=== PATIENT | female | born 1945 | race Caucasian/White ===

== ENCOUNTER 2024-08-06 22:46 | Emergency (ER) | payer OTHER ==
[~2024-08-06] VITALS: Ht 165.1 cm; Wt 70.4 kg
[2024-08-06 22:46] VITALS: BP 124/63; PULSE 37; RESP 17; TEMP 97.5; O2SAT 98
[2024-08-08] MEDS ORDERED: ATOR40TA52 PO (12:33)
[2024-08-08] MEDS ORDERED: SPIR25TA8 PO (12:33)
[2024-08-08] MEDS ORDERED: FURO40TA4 PO (12:33)
[2024-08-08] MEDS ORDERED: MET25T PO (12:33)
[2024-08-08] MEDS ORDERED: APIX5TAB PO (12:33)
== END 2024-08-07 00:04 | disposition left against medical advice (07) ==
LOC: ER 22:46
DX: R53.1 Weakness (principal); Z53.21 Procedure and treatment not carried out due to patient leaving prior to being seen by health care provider

== ENCOUNTER 2024-08-08 10:05 | Inpatient (IN) | payer OTHER ==
[2024-08-08] VITALS (32 sets, daily range): BP systolic 99–150; BP diastolic 45–84; PULSE 34–77; RESP 11–19; TEMP 97.6–98.1; O2SAT 93–100
[~2024-08-08] VITALS: Ht 165.1 cm; Wt 66.9 kg
[2024-08-08] MEDS: GLUCAGON EMERG KIT 1mg/1ml ONE (10:26)
[2024-08-08] MEDS: SODIUM CHLORIDE LOCK 10 ML ONE (10:26)
[2024-08-08] MEDS: DOPamine 1600MCG/ML D5W 0 ML IV ONE (10:29)
[2024-08-08] MEDS: ISOPROTERENOL HCL INJECTION 1 MG in D5W 5% 250 ML IV STA (10:30)
--- NOTE | 2024-08-08 10:30 | ED.PDOC ---
HPI Comments HPI: Poor Historian. 79F presents to the ER w/ son and w/ the c/c of gen perry. Pt reports on having a syncope episode Wednesday of 08/05/24 and son notes that he caught the pt and brought the pt on the ground but the glasses taht the pt was wearing gave the pt a hematoma on the right eye. The pr states on having SOB and wanted to get checked out, but when the pt arrived to triage she was bradycardic of 38. Case was discussed immediately upon the patient's arrival with the gill box operator on-call Dr. Barrios. He reviewed the EKG. He recommends an Isuprel drip to target of heart rate greater than 60. He said that he plans to place the pacemaker tomorrow. Blood pressure has been stable so far. 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 EARS: Denies acute: tinnitus, hearing loss, ear discharge, ear pain, THROAT: Denies acute: sore throat, swelling, difficulty swallowing , pain with swallowing, change in voice. NECK: Denies acute: neck pain, neck swelling, stiff neck. HEART: Denies acute : chest pain, palpitations, LUNGS: Denies acute: SOB, wheezing, cough, hemoptysis ABDOMEN: Denies acute: abdominal pain, Nausea, Vomiting, diarrhea, melena , hematemesis, hematochezia SKIN: Denies acute: rash, redness, lesions, itchiness. EXTREMITIES: Denies acute: calf pain, numbness, tingling, weakness, denies pain in extremity. Denies acute: Low back pain. Neuro: Denies acute: focal neurological deficit, motor or sensory focal neurological deficit, tremors, seizure like activity, confusion, change in mental status, loss of bowel or bladder function, cauda equina like symptoms. : Denies acute: dysuria, hematuria, flank pain, increase in urinary frequency. PSYCH: Denies acute: hallucination, suicidal ideation, homicidal ideation. FEMALE: Denies acute: abnormal vaginal bleeding, foul odor, unusual discharge. PHYSICAL EXAM: General: ---mild-----acute distress, awake and alert. Head: normocephalic, atraumatic. Neck: supple, trachea is midline, no swelling. Throat: Normal phonation. Eyes:, no erythema, no purulent discharge, no proptosis, no icterus. Heart: Bradycardia complete heart block. no significant murmur appreciated. Lungs: no apparent respiratory distress, Able to speak in full sentences. No wheezing, no rhonchi, no crackles. No stridors Clear to auscultation bilaterally. Abdomen: non tender to palpation, non distended, soft, no guarding, no rebound, + bowel sounds. Neuro: Awake, Alert, oriented to name, self, situation, follows commands GCS=15. Speech is normal. Skin: no petechia, no purpura, no cyanosis, non-pale, not jaundice. Lower extremities: --2/4 bilateral - Pitting edema no deformity, no focal swelling, no calf TTP. Makes eye contact. moves all four extremities. Face: no apparent facial droop. ED COURSE: DISCLAIMER: This medical document was created using an electronic medical record system with voice recognition software and computerized dictation system. Although this document has been carefully reviewed, there might still be some phonetic and typographical errors. Occasional wrong-word or "sound-alike" substitutions may have occurred due to the inherent limitations of voice recognition software. These areas are purely typographical due to imperfections of the software programs and do not reflect any compromise in the patient's medical care. Please read the chart carefully and recognize, using context, where these substitutions have occurred. Chief Complaint: General Weakness Time Seen by MD: 10:20 Allergies: Coded Allergies: NO KNOWN ALLERGIES (Unverified , 08/06/24) Home Meds Reported Medications Atorvastatin Calcium (ATORVASTATIN CALCIUM) 40 Mg Tab, 1 TAB PO DAILY 08/08/24 Furosemide (Furosemide) 40 Mg Tab, 1 TAB PO DAILY 08/08/24 Spironolactone (Spironolactone) 25 Mg Tab, 1 TAB PO DAILY 08/08/24 Apixaban Base (ELIQUIS) 5 Mg Tab, 1 TAB PO BID 08/08/24 Metoprolol Tartrate (Lopressor) 25 Mg Tb, 1 TAB PO BID 08/08/24 Information Source: Patient Mode of Arrival: Ambulatory Severity: Moderate Past Medical History PAST MEDICAL HISTORY: AFIB, CHF, High Lipids, HTN Past Medical History (Other): 80-90% blockage of an artery Surgical History: Denies all surgeries AIRCRAFT CAPTAIN History: No Pertinent AIRCRAFT CAPTAIN History Family History Family History: Reviewed,noncontributory to illness, Unknown Social History Smoker: Non-Smoker Alcohol: Denies ETOH Use Drugs: Denies Drug Use Lives In: Home Was a procedure done? Was a procedure done?: No X-Ray, Labs, Meds, VS Vital Signs Date Time Temp Pulse Resp B/P (MAP) Pulse Ox O2 Delivery O2 Flow Rate FiO2 08/08/24 11:55 34 16 96 Room Air* 0 21 08/08/24 11:45 66 18 121/54 (76) 97 08/08/24 11:30 76 16 137/45 (75) 97 08/08/24 11:15 60 17 129/50 (76) 98 08/08/24 11:00 34 12 120/44 (69) 97 08/08/24 11:00 120/44 08/08/24 10:45 98.3 35 15 96 98.3 08/08/24 10:30 115/56 08/08/24 10:25 98.5 38 16 125/65 (85) 98 98.5 08/08/24 10:20 38 14 115/56 (75) 96 08/08/24 10:10 37 Lab Test 08/08/24 11:39 08/08/24 11:30 08/08/24 10:15 Range/Units POC Glucose 120 H 70-106 mg/dl Troponin I High Sensitivity 43 *H 48 *H </=34 ng/L White Blood Count 6.3 4.4-10.8 10^3/uL Red Blood Count 4.05 4.0-5.20 10^6/uL Hemoglobin 13.0 12.2-16.2 g/dL Hematocrit 38.3 36.0-46.0 % Mean Corpuscular Volume 94.5 80.0-100.0 fL Mean Corpuscular Hemoglobin 32.2 H 28.0-32.0 pg Mean Corpuscular Hemoglobin Concent 34.0 32.0-36.0 g/dL Red Cell Distribution Width 14.3 11.8-14.3 % Platelet Count 238 140-450 10^3/uL Mean Platelet Volume 8.4 6.9-10.8 fL Neutrophils (%) (Auto) 70.8 37.0-80.0 % Lymphocytes (%) (Auto) 18.7 10.0-50.0 % Monocytes (%) (Auto) 8.0 0.0-12.0 % Eosinophils (%) (Auto) 1.4 0.0-7.0 % Basophils (%) (Auto) 1.1 0.0-2.0 % Neutrophils # (Auto) 4.5 1.6-8.6 10 ^3/uL Lymphocytes # (Auto) 1.2 0.4-5.4 10 ^3/uL Monocytes # (Auto) 0.5 0-1.3 10 ^3/uL Eosinophils # (Auto) 0.1 0-0.8 10 ^3/uL Basophils # (Auto) 0.1 0-0.2 10 ^3/uL Nucleated Red Blood Cells 0.1 % Prothrombin Time Pending Prothrombin Time INR Pending Activated Partial Thromboplast Time Pending Sodium Level 142 136-145 mmol/L Potassium Level 3.7 3.5-5.1 mmol/L Chloride Level 107 98-107 mmol/L Carbon Dioxide Level 24 20-31 mmol/L Anion Gap 11 5-15 Blood Urea Nitrogen 24 H 9-23 mg/dL Creatinine 1.34 H 0.550-1.02 mg/dL Glomerular Filtration Rate Calc 40 >90 mL/min BUN/Creatinine Ratio 17.9 10.0-20.0 Serum Glucose 92 74-106 mg/dL Hemoglobin A1c 5.4 <5.7 % A1C Lactic Acid Level 1.5 0.4-2.0 mmol/L Calcium Level 10.2 8.7-10.4 mg/dL Phosphorus Level 3.1 2.4-5.1 mg/dL Magnesium Level 2.1 1.6-2.6 mg/dL B-Type Natriuretic Peptide Pending Triglycerides Level 101 < 150 mg/dL Cholesterol Level 121 < 200 mg/dL LDL Cholesterol 63 < 100 mg/dL HDL Cholesterol 41 40-59 mg/dL Thyroid Stimulating Hormone (TSH) 2.85 0.55-4.78 uIU/mL Current Medications Medications (Trade) Dose Ordered Sig/Christi Route Start Time Stop Time Status Last Admin Atropine Sulfate (Atropine Sulfate) 1 mg ONCE ONCE IV 08/08/24 10:30 08/08/24 10:31 DC 08/08/24 10:38 Glucagon (Glucagen) 1 mg ONCE ONCE IV 08/08/24 10:23 08/08/24 10:26 DC 08/08/24 10:37 Sodium Chloride (Saline Lock Ns) 10 ml ONCE ONCE IV 08/08/24 10:30 08/08/24 10:31 DC 08/08/24 10:38 Isoproterenol HCl 1 mg/Dextrose 255 ml @ 30.6 mls/hr Q8H20M STAT IV 08/08/24 10:33 08/08/24 18:52 08/08/24 10:30 Time of 1ST Reevaluation: 10:50 Reevaluation 1ST: Unchanged Time of 2ND Reevaluation: 12:50 Reevaluation 2ND: Improved Patient Education/Counseling: Diagnosis, Treatment, Prognosis Family Education/Counseling: No Family Present Departure 1 Departure Time of Disposition: 10:29 Impression: Primary Impression: Complete heart block Additional Impressions: Elevated troponin Atrial fibrillation Disposition: ADMITTED INPATIENT Admit to: ICU Condition: Critical Discharged With: Self Critical Care Note Critical Care Time?: No I personally scribed for KARON DOSHI DO ([email or web address]) on 08/08/24 at 10:50. Electronically submitted by Javon Casillas ([email or web address]). KARON DOSHI DO Aug 08, 2024 10:30
[2024-08-08 10:34] LABS: Basophils # (auto) 0.1 10 ^3/uL (0-0.2); Basophils % (auto) 1.1 % (0.0-2.0); Eosinophils # (auto) 0.1 10 ^3/uL (0-0.8); Eosinophils % (auto) 1.4 % (0.0-7.0); Hematocrit 38.3 % (36.0-46.0); Lymphocytes # (auto) 1.2 10 ^3/uL (0.4-5.4); Lymphocytes % (auto) 18.7 % (10.0-50.0); Mean Corpuscular Hemoglobin 32.2 pg (28.0-32.0); Mean Corpuscular Volume 94.5 fL (80.0-100.0); Monocytes # (auto) 0.5 10 ^3/uL (0-1.3); Neutrophils # (auto) 4.5 10 ^3/uL (1.6-8.6); Neutrophils % (auto) 70.8 % (37.0-80.0); Nucleated Red Blood Cells % 0.1 %; Platelet Count (auto) 238 10^3/uL (140-450); Red Blood Cells 4.05 10^6/uL (4.0-5.20); Red Cell Distribution Width 14.3 % (11.8-14.3); White Blood Cell 6.3 10^3/uL (4.4-10.8)
[2024-08-08] MEDS: GLUCAGON EMERG KIT 1mg/1ml IV ONE ×3 (10:37→12:00)
[2024-08-08] MEDS: ATROPINE SULF 1 MG/10ml SYR IV ONE (10:38)
[2024-08-08] MEDS: SODIUM CHLOR 0.9% PF (SALINE LOCK) 10ML VIAL/SYR IV ONE (10:38)
[2024-08-08] MEDS: ONDANSETRON HCL 4 MG/2 ML VIAL ONE (10:38)
--- NOTE | 2024-08-08 10:51 | DVH ---
CHEST RADIOGRAPH Indication: weakness Technique: Single frontal view of the chest was obtained COMPARISON: None FINDINGS: Lines and Tubes: None Lungs: Clear Pleura: No effusion. No pneumothorax. Cardiomediastinal contours: Cardiomegaly Bones: Unremarkable IMPRESSION: Cardiomegaly
[2024-08-08 11:08] LABS: Anion Gap 11 (5-15); Carbon Dioxide 24 mmol/L (20-31)
[2024-08-08 11:09] LABS: Calcium 10.2 mg/dL (8.7-10.4); Chloride 107 mmol/L (98-107); Potassium 3.7 mmol/L (3.5-5.1); Sodium 142 mmol/L (136-145)
[2024-08-08 11:13] LABS: BUN/Creatinine Ratio 17.9 (10.0-20.0); Glucose 92 mg/dL (74-106)
[2024-08-08 11:14] LABS: Blood Urea Nitrogen 24 mg/dL (9-23)
[2024-08-08 11:16] LABS: Phosphorus 3.1 mg/dL (2.4-5.1)
[2024-08-08 11:26] LABS: Magnesium 2.1 mg/dL (1.6-2.6)
--- NOTE | 2024-08-08 11:42 | DVHINCON2 ---
Date Seen: Aug 08, 2024 Referring Physician MD Yakov Reason for Consultation Complete heart block History of Present Illness This is pleasant 79-year-old female who presented to the emergency room with a chief complaint of generalized weakness since Wednesday. The patient complains of progressive generalized weakness associated with dizziness, visual disturbances, increased fatigue with exertion, and a reported syncopal event this past Wednesday. She presents with right orbital hematoma. Upon arrival to the emergency room she underwent a 12 lead electrocardiogram revealing a complete heart block with a heart rate at 37 bpm. States she takes Lopressor 25 mg BID with latest intake on Wednesday morning as she noticed bradycardic events. She also takes Eliquis with latest administration this morning. Significant medical history includes severe coronary artery disease with recent cardiac catheterization and without catheter based intervention given high-risk PCI versus possible high-risk cardiothoracic surgery for which the patient chose to continue with medical conservative management at [facility] in [place], [place] with Dr. Castañeda on 12/15/2023 (off antiplatelet therapy), moderate to severe mitral valve regurgitation status post CLAUDINE on 11/2023, unspecified atrial fibrillation status post DC cardioversion (11/2023) currently on Eliquis, congestive heart failure with preserved EF, hypertension, and dyslipidemia. Cardiac catheterization report from [facility] in [place], [place] with Dr. Castañeda (12/16/2023): Coronary Angiography findings: Left main large caliber vessel. The distal left main has 50% disease that is in continuity with severe ostial disease of the left circumflex in the LAD, [id number] left main distal disease. LAD is a large caliber vessel. There is tortuosity in the proximal segment with a hairpin turn, the ostium has a severe 95% calcific stenosis. Conclusions: Severe distal left main, ostial LAD and ostial left circumflex disease, extremely calcified, very complex PCI high-risk versus possible high-risk CABG versus medical management. Normal left ventricular function, EF 60%. [id number] mitral valve regurgitation on echo. Atrial fibrillation cardioverted. We will discuss with the patient, family and possible cardiothoracic surgery about the high Cardiothoracic risk of combined mitral valve repair and bypass surgery. Possible high-risk PCI and mitral valve clip versus continued medical conservative management. Past Medical History Past medical history reviewed. No other significant than mentioned above. Past Surgical History DC cardioversion, 11/2023 Transesophageal echocardiogram, 11/2023 Cardiac catheterization without catheter based intervention, 11/2023 Family History Family history reviewed. Social History Denies the use of illicit drugs, alcohol, or tobacco use. Allergies: Coded Allergies: NO KNOWN ALLERGIES (Unverified , 08/06/24) Home Meds Home medications reviewed. Current Medications Current Medications Medications (Trade) Dose Ordered Sig/Christi Route PRN Reason Start Time Stop Time Status Last Admin Isoproterenol HCl 1 mg/Dextrose 255 ml @ 30.6 mls/hr Q8H20M STAT IV 08/08/24 10:33 08/08/24 18:52 08/08/24 11:00 Review of Systems Constitutional: Generalized weakness Ears, Nose, & Throat: No symptom reported Eyes: No symptom reported Neurological: Blurry vision, dizziness, syncope Pulmonary/Respiratory: No symptom reported Cardiovascular: No symptom reported Gastrointestinal: No symptom reported Genitourinary: No symptom reported Musculoskeletal: No symptom reported Skin: No symptom reported Psychiatric: No symptom reported Endocrine: No symptom reported Hemotologic/Lymphatic: No symptom reported Vital Signs Vital Signs Date Time Temp Pulse Resp B/P (MAP) Pulse Ox O2 Delivery O2 Flow Rate FiO2 08/08/24 11:00 129/50 08/08/24 10:25 98.5 38 16 98 98.5 Physical Exam General Appearance: Cooperative. Well developed. Well nourished. In no acute distress Head Exam: Normal inspection Neck Exam: Normal inspection. Non-tender. Normal alignment Pulmonary/Respiratory: Chest non-tender. Clear bilateral breath sounds Cardiovascular/Chest: Regular rate and rhythm. S1, S2. Complete heart block. Holosystolic murmur V/. No JVD. Peripheral Pulses: 2+ Radial (R). 2+ Radial (L). 2+ Pedal (R). 2+ Pedal (L) Abdominal Exam: Normal bowel sounds. Soft. Nontender. No hepatospenomegaly. No masses Ankle Exam: Negative ankle edema Lower extremities: Negative lower extremity edema Neuro/Mental Status: A&O x4. Coherent Thoughts/Psych: Normal thought pattern. Appropriate mood and affect. Good judgement and insight Appearance: In no acute distress Skin Exam: Right orbital hematoma Labs/Diagnostic Data Labs Test 08/08/24 11:30 08/08/24 10:15 Range/Units White Blood Count 6.3 4.4-10.8 10^3/uL Red Blood Count 4.05 4.0-5.20 10^6/uL Hemoglobin 13.0 12.2-16.2 g/dL Hematocrit 38.3 36.0-46.0 % Mean Corpuscular Volume 94.5 80.0-100.0 fL Mean Corpuscular Hemoglobin 32.2 H 28.0-32.0 pg Mean Corpuscular Hemoglobin Concent 34.0 32.0-36.0 g/dL Red Cell Distribution Width 14.3 11.8-14.3 % Platelet Count 238 140-450 10^3/uL Mean Platelet Volume 8.4 6.9-10.8 fL Neutrophils (%) (Auto) 70.8 37.0-80.0 % Lymphocytes (%) (Auto) 18.7 10.0-50.0 % Monocytes (%) (Auto) 8.0 0.0-12.0 % Eosinophils (%) (Auto) 1.4 0.0-7.0 % Basophils (%) (Auto) 1.1 0.0-2.0 % Neutrophils # (Auto) 4.5 1.6-8.6 10 ^3/uL Lymphocytes # (Auto) 1.2 0.4-5.4 10 ^3/uL Monocytes # (Auto) 0.5 0-1.3 10 ^3/uL Eosinophils # (Auto) 0.1 0-0.8 10 ^3/uL Basophils # (Auto) 0.1 0-0.2 10 ^3/uL Nucleated Red Blood Cells 0.1 % Sodium Level 142 136-145 mmol/L Potassium Level 3.7 3.5-5.1 mmol/L Chloride Level 107 98-107 mmol/L Carbon Dioxide Level 24 20-31 mmol/L Anion Gap 11 5-15 Blood Urea Nitrogen 24 H 9-23 mg/dL Creatinine 1.34 H 0.550-1.02 mg/dL Glomerular Filtration Rate Calc 40 >90 mL/min BUN/Creatinine Ratio 17.9 10.0-20.0 Serum Glucose 92 74-106 mg/dL Lactic Acid Level 1.5 0.4-2.0 mmol/L Calcium Level 10.2 8.7-10.4 mg/dL Phosphorus Level 3.1 2.4-5.1 mg/dL Magnesium Level 2.1 1.6-2.6 mg/dL Thyroid Stimulating Hormone (TSH) 2.85 0.55-4.78 uIU/mL Assessment Complete heart block Syncope and collapse secondary to above Unspecified atrial fibrillation status post DC cardioversion (11/2023), on Eliquis/BB Severe coronary artery disease including severe distal left main, ostial LAD, and ostial LCx Mitral valve regurgitation, [id number] Chronic compensated HFpEF Hypertension Dyslipidemia Plan/Recommendation (Dr. Barrios) The patient with a complete heart block will continue Isoproterenol drip to attain a HR > 50 bpm. Continue glucagon IV given recent beta-comfort use. Obtain a STAT transthoracic echocardiogram to further evaluate cardiac function. Administer atropine IV vs initiation of transcutaneous pacing for a HR <30 bpm. Notify Cardiology of any acute changes on HR or decompensation of clinical status. Stable at this time. We will further discuss with Dr. Barrios as the patient qualifies for a permanent pacemaker, nevertheless she last took Eliquis this morning at 1000 which may delay the procedure. Further orders per clinical course. Thank you for allowing us to participate in this patient's care. Please call if you have any questions or concerns. Critical care time: 70 min. This medical document was created using an electronic medical record system with voice recognition software and computerized dictation system. Although this document has been carefully reviewed, there might still be some phonetic and typographical errors. Occasional wrong-word or ``sound-alike substitutions may have occurred due to the inherent limitations of voice recognition software. These areas are purely typographical due to imperfections of the software programs and do not reflect any compromise in the patient's medical care. Please read the chart carefully and recognize, using context, where these substitutions have occurred. Plan discussed with: Patient, Son, Other NYHA Physical activity limitations: NA Date of Service: Aug 08, 2024 Billing Provider: JOSE C JEWELL Cardiology Common Codes: [id number] CARE 30-74 MIN JOSE C JEWELL Aug 08, 2024 11:42
[2024-08-08] MEDS: DOPamine 1600MCG/ML D5W 250 ML IV SCH (12:15)
[2024-08-08] MEDS ORDERED: HYDROcodone-ACET 5/325MG TAB PO PRN (12:30)
[2024-08-08] MEDS ORDERED: MORPHINE SULFATE INJ 2 MG/ml SYRG IV PRN (12:30)
[2024-08-08] MEDS ORDERED: NITROGLYCERIN 0.4 MG SL TAB SL PRN (12:30)
[2024-08-08] MEDS ORDERED: FURO40TA4 PO (12:33)
[2024-08-08] MEDS ORDERED: MET25T PO (12:33)
[2024-08-08] MEDS ORDERED: APIX5TAB PO (12:33)
[2024-08-08] MEDS ORDERED: ATOR40TA52 PO (12:33)
[2024-08-08] MEDS ORDERED: SPIR25TA8 PO (12:33)
[2024-08-08 12:34] LABS: LDL Cholesterol 63 mg/dL (< 100); Triglycerides 101 mg/dL (< 150)
[2024-08-08 12:35] LABS: Cholesterol 121 mg/dL (< 200); HDL Cholesterol 41 mg/dL (40-59)
--- NOTE | 2024-08-08 12:55 | DVHHP2 ---
History of Present Illness Reason for Visit: Low heart rate History of Present Illness Roz Jones is an 79-year-old female with past medical history of atrial fibrillation, CHF, hypertension, and hyperlipidemia, who came to the hospital for low heart rate. [place] and is here visiting her son. Patient states she has been feeling weak, tired, short of breath and having difficulty ambulating short distances the last few days. She states she noticed her heart rate was low on Wednesday08/04/2024. She last took her Beta comfort Wednesday evening. Wednesday she had a syncopal episode, where her son caught her and assisted her to the ground. She had a momentary loss of consciousness. She also hit her glasses to her face causing a bruise. Wednesday she came to the ER due to her low heart rate and fatigue. She ended up leaving AMA because she was reaching out to her primary care provider to find out if she be seen closer to home. Her primary care provider called back today and told her she could be seen at either place, but that she needed to get seen as soon as possible. Patient last took her Eliquis this morning. I spoke with cardiology and they are working on getting her to labeler today or tomorrow. Cardiovascular: AFIB, CHF, HTN, hyperipidemia Past Surgical History: Cholecystectomy Smoke: No ALCOHOL: rare Drugs: None Lives: with Family Domestic Violence: Neg Review of Systems Constitutional: Yes: Weakness, Malaise; No: Fever, Chills, Sweats, Other Eyes: No: Pain, Vision change, Conjunctivae inflammation, Eyelid inflammation, Other, Redness ENT: No: Ear pain, Ear discharge, Nose pain, Nose discharge, Nose congestion, Mouth pain, Mouth swelling, Throat pain, Throat swelling, Other Respiratory: Shortness of breath, SOB with excertion; No: Cough, Dry, Wheezing, Hemoptysis, Pleuritic Pain, Sputum, Wheezing, Other Cardiovascular: Edema, Lt Headedness; No: Chest Pain, Palpitations, Orthopnea, Paroxysmal Noc. Dyspnea, Other Gastrointestinal: No: Nausea, Vomiting, Abdominal Pain, Diarrhea, Constipation, Melena, Hematochezia, Other Genitourinary: No Dysuria, No Frequency, No Incontinence, No Hematuria, No Retention, No Other Musculoskeletal: No: other, neck pain, shoulder pain, arm pain, back pain, hand pain, leg pain, foot pain Neurological: No: Weakness, Numbness, Incoordination, Change in speech, Confusion, Seizures, Other Allergies: Coded Allergies: NO KNOWN ALLERGIES (Unverified , 08/06/24) Medications Current Medications Medications Dose Ordered Sig/Christi Route Start Time Stop Time Status Last Admin Dose Admin Isoproterenol HCl 1 mg/Dextrose 255 ml @ 30.6 mls/hr Q8H20M STAT IV 08/08/24 10:33 08/08/24 18:52 08/08/24 10:30 30.6 MLS/HR Dopamine HCl/ Dextrose 250 ml @ 11.813 mls/ hr [id number] IV 08/08/24 12:15 Exam Vital Signs Vital Signs Date Time Temp Pulse Resp B/P (MAP) Pulse Ox O2 Delivery O2 Flow Rate FiO2 08/08/24 11:55 34 16 96 Room Air* 0 21 08/08/24 11:45 121/54 (76) 08/08/24 10:45 98.3 98.3 General Appearance: Alert, Oriented X3, Cooperative, moderate distress HEENT: Atraumatic, PERRLA Respiratory: Clear to auscultation, Normal air movement Cardiovascular: Other (complete heart block) Abdominal: Normal bowel sounds, Soft, No tenderness, No hepatospenomegaly, No masses Extremities: No clubbing, No cyanosis, Normal pulses, No tenderness/swelling, Other (bilateral lower extremity edema) Skin: No rashes, No breakdown, No significant lesion Neuro: Normal speech, Strength at 5/5 X4 ext Psych/Mental Status: Mental status NL, Mood NL Labs/Xrays Labs Test 08/08/24 11:39 08/08/24 11:30 08/08/24 10:15 Range/Units POC Glucose 120 H 70-106 mg/dl Troponin I High Sensitivity 43 *H </=34 ng/L White Blood Count 6.3 4.4-10.8 10^3/uL Red Blood Count 4.05 4.0-5.20 10^6/uL Hemoglobin 13.0 12.2-16.2 g/dL Hematocrit 38.3 36.0-46.0 % Mean Corpuscular Volume 94.5 80.0-100.0 fL Mean Corpuscular Hemoglobin 32.2 H 28.0-32.0 pg Mean Corpuscular Hemoglobin Concent 34.0 32.0-36.0 g/dL Red Cell Distribution Width 14.3 11.8-14.3 % Platelet Count 238 140-450 10^3/uL Mean Platelet Volume 8.4 6.9-10.8 fL Neutrophils (%) (Auto) 70.8 37.0-80.0 % Lymphocytes (%) (Auto) 18.7 10.0-50.0 % Monocytes (%) (Auto) 8.0 0.0-12.0 % Eosinophils (%) (Auto) 1.4 0.0-7.0 % Basophils (%) (Auto) 1.1 0.0-2.0 % Neutrophils # (Auto) 4.5 1.6-8.6 10 ^3/uL Lymphocytes # (Auto) 1.2 0.4-5.4 10 ^3/uL Monocytes # (Auto) 0.5 0-1.3 10 ^3/uL Eosinophils # (Auto) 0.1 0-0.8 10 ^3/uL Basophils # (Auto) 0.1 0-0.2 10 ^3/uL Nucleated Red Blood Cells 0.1 % Sodium Level 142 136-145 mmol/L Potassium Level 3.7 3.5-5.1 mmol/L Chloride Level 107 98-107 mmol/L Carbon Dioxide Level 24 20-31 mmol/L Anion Gap 11 5-15 Blood Urea Nitrogen 24 H 9-23 mg/dL Creatinine 1.34 H 0.550-1.02 mg/dL Glomerular Filtration Rate Calc 40 >90 mL/min BUN/Creatinine Ratio 17.9 10.0-20.0 Serum Glucose 92 74-106 mg/dL Lactic Acid Level 1.5 0.4-2.0 mmol/L Calcium Level 10.2 8.7-10.4 mg/dL Phosphorus Level 3.1 2.4-5.1 mg/dL Magnesium Level 2.1 1.6-2.6 mg/dL Thyroid Stimulating Hormone (TSH) 2.85 0.55-4.78 uIU/mL CHEST RADIOGRAPH FINDINGS: Lines and Tubes: None Lungs: Clear Pleura: No effusion. No pneumothorax. Cardiomediastinal contours: Cardiomegaly Bones: Unremarkable IMPRESSION: Cardiomegaly Assessment/Plan Assessment/Plan Assessment: Complete heart block, CHF, Hypertension, Hyperlipidemia, Plan: Admit to ICU, Cardiology consult, Isoproterenol drip, ECHO, NPO, Keep connected to defibrillator, Home medication reconciled, Home Metoprolol and Eliquis held Plan discussed with: Patient, Son My Orders Orders - ANANT SETH Procedure Category Date Status Time Admit ADMIT 08/08/24 Transmitted 12:26 Code Status CODE 08/08/24 Transmitted 12:26 0.9% Ns 1000 Ml PHA 08/08/24 Transmitted 12:30 Hydrocodone-Acet PHA 08/08/24 Transmitted 5/325mg Tab (Julian 12:30 Ondansetron Hcl PHA 08/08/24 Transmitted (Zofran) 12:30 Docusate Sodium PHA 08/08/24 Transmitted Capsule (Colace 12:30 Fall Risk Precautions [facility] 08/08/[address] 12:26 Complete Blood Count LAB 08/09/24 Verified 04:00 Comprehensive LAB 08/09/24 Verified Metabolic Panel 04:00 Npo (Nothing By DIET 08/08/24 Transmitted Mouth) Diet Lunch Condition: Critical [facility] 08/08/24 Transmitted 12:26 Acetaminophen Tablet PHA 08/08/24 Transmitted (Tylenol Tablet) 12:30 Nitroglycerin PHA 08/08/24 Transmitted Sublingual (Ntrostat 12:30 Morphine Sulfate PHA 08/08/24 Transmitted Injection 12:30 Stat Ekg For Chest [facility] 08/08/24 Transmitted Pain 12:26 Notify Md Of Changes 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 08/08/24 Transmitted Every Shift 12:26 Oxygen By Nasal RT 08/08/24 Transmitted Cannula 12:26 Date of Service: Aug 08, 2024 Billing Provider: ANANT SETH Common Visit Codes: [id number] INP/OBS CARE (HIGH) ANANT SETH Aug 08, 2024 12:55
[2024-08-08] MEDS: SODIUM CHLORIDE 0.9% 1,000 ML IV SCH (13:00)
[2024-08-08 13:03] LABS: INR 1.14 (0.9-1.15); Partial Thromboplastin Time 27.1 SEC (24.5-34.5); Prothrombin Time 11.9 sec (9.3-11.8)
[2024-08-08] MEDS: ASPirin-EC 325mg tab PO ONE (13:11)
[2024-08-08] MEDS: MIDAZOLAM HCL 2MG/2ML 2ml VIAL (1mg/ml) ONE (14:42)
[2024-08-08] MEDS: fentaNYL CITRATE 100 MCG/2 ML VL ONE (14:42)
[2024-08-08] MEDS: LIDOCAINE 2%HCL (LOCAL ANESTH.) INJ 20ML MDV ONE (14:42)
[2024-08-08] MEDS: ONDANSETRON HCL 4 MG/2 ML VIAL IV PRN (15:58)
--- NOTE | 2024-08-08 17:18 | DVHOP2 ---
Operative Report - 2 Report Details Date: 08/08/24 Preop Diagnosis: Complete heart block Postop Diagnosis: Complete heart block Surgeon: Ren Christianson MD Anesthesiologist: Conscious sedation, local anesthetic Anesthesia: Mac, Local Consent: The patient was informed of the risks and benefits of the procedure. These include but are not limited to complications of anesthesia, postoperative infection, incomplete relief of symptoms, recurrence of symptoms, damage to blood vessels, nerves and tendons, deep venous thrombosis, pulmonary embolism and possible need for repeat surgery in the future. Complications: No complications Findings: Complete heart block Indications for Surgery: Complete heart block Name of Procedure Performed Temporary pacemaker Procedure Details Procedure Details: Prior local anesthesia 2% lidocaine to the right anterior aspect of the neck under fluoroscopic and ultrasound guidance we were able to gain access into the internal jugular vein. A six Divehi sheath was then placed followed by a temporary pacing lead. A balloon tipped pacer was placed into the RV. It was d ifficult to obtain access into the RV apex. It was placed into the mid to lower septum within the trabeculae. Adequate capture and sensitivity thresholds were obtained. The sheath was sutured with 3-0 silk. The lead was secured with 3-0 silk as well. Fluoroscopy and ultrasound guidance was used to place the sheath and positioned the pacemaker in the appropriate position. Patient tolerated the procedure well there were no complications. Patient will have permanent pacemaker placement in two day subsequent to discontinuing Eliquis. Condition Good Disposition Still a Patient Date of Service: Aug 08, 2024 Billing Provider: REN CHRISTIANSON Sr., MD Cardiology Common Codes: [id number] INP/OBS CARE (High) Card. Pacer Implants/Gen [id number] TTVPM/PACER (Temporary transvenous pacemaker placed under fluoroscopic and ultrasound guidance) REN CHRISTIANSON Sr., MD Aug 08, 2024 17:18
[2024-08-08] MEDS: ATORVASTATIN 20 MG TAB PO SCH (22:00)
--- NOTE | 2024-08-08 23:50 | DVHINCON2 ---
Date Seen: Aug 08, 2024 Referring Physician MD Yakov Reason for Consultation Complete heart block History of Present Illness This is 79-year-old female with a PMH of severe coronary artery disease with recent cardiac catheterization and without catheter based intervention given high-risk PCI versus possible high-risk cardiothoracic surgery for which the patient chose to continue with medical conservative management at [facility] in [place], [place] with Dr. Castañeda on 12/15/2023 (off antiplatelet therapy), moderate to severe mitral valve regurgitation status post CLAUDINE on 11/2023, unspecified atrial fibrillation status post DC cardioversion (11/2023) currently on Eliquis, congestive heart failure with preserved EF, hypertension, and dyslipidemia. who presented to the ED with a complaint of generalized weakness since Wednesday. The patient complains of progressive generalized weakness associated with dizziness, visual disturbances, increased fatigue with exertion, and a reported syncopal event this past Wednesday. She presents with right orbital hematoma. Upon arrival to the emergency room she underwent a 12 lead electrocardiogram revealing a complete heart block with a heart rate at 37 bpm. States she takes Lopressor 25 mg BID with latest intake on Wednesday morning as she noticed bradycardic events. She also takes Eliquis with latest administration this morning. Chest x-ray shows cardiomegaly. Troponin 48 > 43. Patient was admitted to the hospital. I am asked to consult on this patient. Cardiac catheterization report from [facility] in [place], [place] with Dr. Castañeda (12/16/2023): Coronary Angiography findings: Left main large caliber vessel. The distal left main has 50% disease that is in continuity with severe ostial disease of the left circumflex in the LAD, [id number]-[id number] left main distal disease. LAD is a large caliber vessel. There is tortuosity in the proximal segment with a hairpin turn, the ostium has a severe 95% calcific stenosis. Conclusions: Severe distal left main, ostial LAD and ostial left circumflex disease, extremely calcified, very complex PCI high-risk versus possible high-risk CABG versus medical management. Normal left ventricular function, EF 60%. Ulcrayzb-rr-eijkan mitral valve regurgitation on echo. Atrial fibrillation cardioverted. We will discuss with the patient, family and possible cardiothoracic surgery about the high Cardiothoracic risk of combined mitral valve repair and bypass surgery. Possible high-risk PCI and mitral valve clip versus continued medical conservative management. Past Medical History Past medical history reviewed. No other significant than mentioned above. Past Surgical History DC cardioversion, 11/2023 Transesophageal echocardiogram, 11/2023 Cardiac catheterization without catheter based intervention, 11/2023 Family History: FH: cancer G8 MOTHER, Onset:Unknown Hypertension 19 CHILD, Onset:40's - 50 Prostate carcinoma G8 BROTHER, Onset:Unknown Allergies: Coded Allergies: NO KNOWN ALLERGIES (Unverified , 08/06/24) Home Meds Reported Medications Atorvastatin Calcium (ATORVASTATIN CALCIUM) 40 Mg Tab, 1 TAB PO DAILY 08/08/24 Furosemide (Furosemide) 40 Mg Tab, 1 TAB PO DAILY 08/08/24 Spironolactone (Spironolactone) 25 Mg Tab, 1 TAB PO DAILY 08/08/24 Apixaban Base (ELIQUIS) 5 Mg Tab, 1 TAB PO BID 08/08/24 Metoprolol Tartrate (Lopressor) 25 Mg Tb, 1 TAB PO BID 08/08/24 Current Medications Current Medications Medications (Trade) Dose Ordered Sig/Christi Route PRN Reason Start Time Stop Time Status Last Admin Isoproterenol HCl 1 mg/Dextrose 255 ml @ 30.6 mls/hr Q8H20M STAT IV 08/08/24 10:33 08/08/24 18:52 DC 08/08/24 10:30 Dopamine HCl/ Dextrose 250 ml @ 11.813 mls/ hr [id number] IV 08/08/24 12:15 Sodium Chloride 1,000 ml @ 100 mls/hr Q10H IV 08/08/24 12:30 08/08/24 16:13 DC 08/08/24 13:00 Acetaminophen/ Hydrocodone Bitart ([place] 5/325MG Tab) 1 tab Q4HP PRN PO MODERATE PAIN (4-6 PAIN SCALE) 08/08/24 12:30 Ondansetron HCl (Zofran) 4 mg Q4HP PRN IV NAUSEA / VOMITING 08/08/24 12:30 08/08/24 15:58 Docusate Sodium (Colace Capsule) 100 mg BIDPRN PRN PO FOR CONSTIPATION 08/08/24 12:30 Acetaminophen (Tylenol Tablet) 650 mg Q6HP PRN PO PAIN SCALE 1-3 OR TEMP>100.4 08/08/24 12:30 Nitroglycerin (Ntrostat Sublingual) 0.4 mg Q5MINP PRN SL FOR CHEST PAIN 08/08/24 12:30 Morphine Sulfate 2 mg Q30M PRN IV FOR CHEST PAIN 08/08/24 12:30 Furosemide (Lasix Tablet) 40 mg DAILY PO 08/09/24 10:00 Spironolactone (Aldactone) 25 mg DAILY PO 08/09/24 10:00 Atorvastatin Calcium (Lipitor) 40 mg HS PO 08/08/24 22:00 Review of Systems Constitutional: Generalized weakness Ears, Nose, & Throat: No symptom reported Eyes: No symptom reported Neurological: Blurry vision, dizziness, syncope Pulmonary/Respiratory: No symptom reported Cardiovascular: No symptom reported Gastrointestinal: No symptom reported Genitourinary: No symptom reported Musculoskeletal: No symptom reported Skin: No symptom reported Psychiatric: No symptom reported Endocrine: No symptom reported Hemotologic/Lymphatic: No symptom reported Vital Signs Vital Signs Date Time Temp Pulse Resp B/P (MAP) Pulse Ox O2 Delivery O2 Flow Rate FiO2 08/08/24 22:01 98.1 70 18 131/74 (93) 99 98.1 08/08/24 22:01 Nasal Cannula* 2 28 Physical Exam GENERAL: Alert and oriented x 3. No acute distress. EYES: PERRL, EOMI. Anicteric. HENT: Moist mucous membranes. LUNGS: Clear to auscultation bilaterally. CARDIOVASCULAR: Regular rate and rhythm. Complete heart block. Holosystolic murmur V/. ABDOMEN: Soft, non-tender and non-distended. EXTREMITIES: No edema. NEUROLOGIC: No focal neurological deficits. SKIN: Warm, dry. Labs/Diagnostic Data Labs Test 08/08/24 11:39 08/08/24 11:30 08/08/24 10:15 Range/Units POC Glucose 120 H 70-106 mg/dl Troponin I High Sensitivity 43 *H </=34 ng/L White Blood Count 6.3 4.4-10.8 10^3/uL Red Blood Count 4.05 4.0-5.20 10^6/uL Hemoglobin 13.0 12.2-16.2 g/dL Hematocrit 38.3 36.0-46.0 % Mean Corpuscular Volume 94.5 80.0-100.0 fL Mean Corpuscular Hemoglobin 32.2 H 28.0-32.0 pg Mean Corpuscular Hemoglobin Concent 34.0 32.0-36.0 g/dL Red Cell Distribution Width 14.3 11.8-14.3 % Platelet Count 238 140-450 10^3/uL Mean Platelet Volume 8.4 6.9-10.8 fL Neutrophils (%) (Auto) 70.8 37.0-80.0 % Lymphocytes (%) (Auto) 18.7 10.0-50.0 % Monocytes (%) (Auto) 8.0 0.0-12.0 % Eosinophils (%) (Auto) 1.4 0.0-7.0 % Basophils (%) (Auto) 1.1 0.0-2.0 % Neutrophils # (Auto) 4.5 1.6-8.6 10 ^3/uL Lymphocytes # (Auto) 1.2 0.4-5.4 10 ^3/uL Monocytes # (Auto) 0.5 0-1.3 10 ^3/uL Eosinophils # (Auto) 0.1 0-0.8 10 ^3/uL Basophils # (Auto) 0.1 0-0.2 10 ^3/uL Nucleated Red Blood Cells 0.1 % Prothrombin Time 11.9 H 9.3-11.8 sec Prothrombin Time INR 1.14 0.9-1.15 Activated Partial Thromboplast Time 27.1 24.5-34.5 SEC Sodium Level 142 136-145 mmol/L Potassium Level 3.7 3.5-5.1 mmol/L Chloride Level 107 98-107 mmol/L Carbon Dioxide Level 24 20-31 mmol/L Anion Gap 11 5-15 Blood Urea Nitrogen 24 H 9-23 mg/dL Creatinine 1.34 H 0.550-1.02 mg/dL Glomerular Filtration Rate Calc 40 >90 mL/min BUN/Creatinine Ratio 17.9 10.0-20.0 Serum Glucose 92 74-106 mg/dL Hemoglobin A1c 5.4 <5.7 % A1C Lactic Acid Level 1.5 0.4-2.0 mmol/L Calcium Level 10.2 8.7-10.4 mg/dL Phosphorus Level 3.1 2.4-5.1 mg/dL Magnesium Level 2.1 1.6-2.6 mg/dL B-Type Natriuretic Peptide 729.14 0-100 pg/mL Triglycerides Level 101 < 150 mg/dL Cholesterol Level 121 < 200 mg/dL LDL Cholesterol 63 < 100 mg/dL HDL Cholesterol 41 40-59 mg/dL Thyroid Stimulating Hormone (TSH) 2.85 0.55-4.78 uIU/mL Assessment Complete heart block. Syncope and collapse secondary to above. Unspecified atrial fibrillation status post DC cardioversion (11/2023), on Eliquis/BB. Severe coronary artery disease including severe distal left main, ostial LAD, and ostial LCx. Mitral valve regurgitation, [id number]. Chronic compensated HFpEF. Hypertension. Dyslipidemia. Plan/Recommendation I agree with your ongoing assessment and care of plan. Patient has been seen by Elena Cochran NP on my behalf. We have discussed the plan with the patient. The patient with a complete heart block will continue Isoproterenol drip to attain a HR > 50 bpm. Continue glucagon IV given recent beta-comfort use. Obtain a STAT transthoracic echocardiogram to further evaluate cardiac function. Administer atropine IV vs initiation of transcutaneous pacing for a HR <30 bpm. Notify Cardiology of any acute changes on HR or decompensation of clinical status. Stable at this time. We will further discuss as the patient qualifies for a permanent pacemaker, nevertheless she last took Eliquis this morning at 1000 which may delay the procedure. Further orders per clinical course. Additional plan as per the hospital course. Plan discussed with: Patient NYHA Physical activity limitations: NA Date of Service: Aug 08, 2024 Billing Provider: DAWN MOBLEY MD Cardiology Common Codes: [id number] DAWN MOBLEY MD Aug 08, 2024 23:50
[2024-08-09] VITALS (81 sets, daily range): BP systolic 79–176; BP diastolic 44–128; PULSE 51–118; RESP 12–25; TEMP 97.9–98.4; O2SAT 92–100
[2024-08-09 04:19] LABS: Basophils # (auto) 0 10 ^3/uL (0-0.2); Basophils % (auto) 0.4 % (0.0-2.0); Eosinophils # (auto) 0 10 ^3/uL (0-0.8); Eosinophils % (auto) 0.3 % (0.0-7.0); Hematocrit 36.5 % (36.0-46.0); Hemoglobin 12.7 g/dL (12.2-16.2); Lymphocytes # (auto) 1.3 10 ^3/uL (0.4-5.4); Lymphocytes % (auto) 15.9 % (10.0-50.0); Mean Corpuscular Hemoglobin 32.8 pg (28.0-32.0); Mean Corpuscular Hgb Conc. 34.7 g/dL (32.0-36.0); Mean Corpuscular Volume 94.5 fL (80.0-100.0); Monocytes # (auto) 0.8 10 ^3/uL (0-1.3); Monocytes % (auto) 9.8 % (0.0-12.0); Neutrophils # (auto) 5.8 10 ^3/uL (1.6-8.6); Neutrophils % (auto) 73.6 % (37.0-80.0); Platelet Count (auto) 211 10^3/uL (140-450); Red Blood Cells 3.86 10^6/uL (4.0-5.20); Red Cell Distribution Width 14.4 % (11.8-14.3); White Blood Cell 7.9 10^3/uL (4.4-10.8)
[2024-08-09 04:37] LABS: Alanine Aminotransferase 26 U/L (7-40); Albumin 3.9 g/dL (3.2-4.8); Alkaline Phosphatase 102 U/L (46-116); Anion Gap 10 (5-15); Aspartate Aminotransferase 31 U/L (<34); BUN/Creatinine Ratio 14.5 (10.0-20.0); Blood Urea Nitrogen 17 mg/dL (9-23); Carbon Dioxide 24 mmol/L (20-31); Glucose 89 mg/dL (74-106); Potassium 4.5 mmol/L (3.5-5.1); Sodium 142 mmol/L (136-145); Total Protein 5.7 g/dL (5.7-8.2)
[2024-08-09 04:40] LABS: Bilirubin, Total 1.4 mg/dL (0.2-1.0); Chloride 108 mmol/L (98-107)
[2024-08-09] MEDS: FUROSEMIDE 40 MG TAB PO SCH (09:19)
[2024-08-09] MEDS: SPIRONOLACTONE 25 MG TAB PO SCH (09:20)
--- NOTE | 2024-08-09 09:22 | DVHSR ---
APPROVED REPORT EXAM: Two-dimensional and M-mode echocardiogram with Doppler and color Doppler. Blood Pressure: 121/54 mmHg INDICATION Complete Heart Block RISK FACTORS Height: 5'5", Weight: 138 DIMENSIONS LVDd4.2 (3.8-5.7cm)LA (2D)4.9 (1.9-4.0cm)Aortic Root (2.0-3.7cm) LVDs2.0 (2.5-4.0cm)LA (MM) (1.9-4.0cm)Aortic Cusp Exc (1.5-2.0cm) EF (%) 83.0 (55-70%)Rt. Atrium4.3 (1.9-4.0cm)Asc. Aorta cm IVSd1.9 (0.7-1.1cm)RV (D)4.0 (1.8-2.4cm) PWd1.4 (0.7-1.1cm) Mitral Valve MitralMitral Stenosis E wave1.35m/sMV Mean GR.4mmHg A wavem/sMV Peak GR.12mmHg E/A ratio0.02D MVAcm2 DECEL TimemsPRESS 1/2 [id number] IVRTmsDop MVA1.76cm2 Aortic Valve Aortic ValveAortic Stenosis V1m/Fadi Mean GR.50mmHg V24.86m/Fadi Peak GR.100mmHg Tricuspid Valve TR Velocity3.39m/s [id number] Other Information Quality : Technically LimitedRhythm : Technically limited study due to patient position. Pt was sitting up. Conclusion 1. MODERATE DEGREE LVH AND MODERATE DEGREE LV DIASTOLIC DYSFUNCTION LV EF IS 70% AND IS NORMAL 2. MODERATELY DILATED LA 3. MODERATELY SEVERE MITRAL REGURGITATION 4. NORMAL VALVES 5. NO EFFUSION 6. SEVERE PULMONARY HYPERTENSION RVSP IS 60 MM OF HG AND IS VERY HIGH
--- NOTE | 2024-08-09 13:02 | DVHPN2 ---
Consult Progress Note Subjective Other Systems: Patient in normal sinus rhythm with underlying paced rhythm. Transvenous pacemaker in place Objective vital signs Vital Sign Date Time Temp Pulse Resp B/P (MAP) Pulse Ox O2 Delivery O2 Flow Rate FiO2 08/09/24 12:00 71 15 96/55 (69) 98 08/09/24 12:00 Nasal Cannula* 2 28 08/09/24 08:00 97.9 97.9 Total Intake and Output 08/08/24 08/08/24 08/09/24 15:00 23:00 07:00 Intake Total 216.675 ml 37.800 ml Balance 216.675 ml 37.800 ml medications Current Medications Medications Dose Ordered Sig/Christi Route Start Time Stop Time Status Last Admin Dose Admin Dopamine HCl/ Dextrose 250 ml @ 11.813 mls/ hr [id number] IV 08/08/24 12:15 Acetaminophen/ Hydrocodone Bitart 1 tab Q4HP PRN PO 08/08/24 12:30 Ondansetron HCl 4 mg Q4HP PRN IV 08/08/24 12:30 08/08/24 15:58 4 MG Docusate Sodium 100 mg BIDPRN PRN PO 08/08/24 12:30 Acetaminophen 650 mg Q6HP PRN PO 08/08/24 12:30 Nitroglycerin 0.4 mg Q5MINP PRN SL 08/08/24 12:30 Morphine Sulfate 2 mg Q30M PRN IV 08/08/24 12:30 Furosemide 40 mg DAILY PO 08/09/24 10:00 08/09/24 09:19 40 MG Spironolactone 25 mg DAILY PO 08/09/24 10:00 08/09/24 09:20 25 MG Atorvastatin Calcium 40 mg HS PO 08/08/24 22:00 Examination: GENERAL:Normal, LUNGS:Normal, CVS:Normal, NEURO:Normal laboratory and microbiology Laboratory Tests 08/09/24 03:53 Test 08/09/24 03:53 Range/Units Serum Glucose 89 74-106 mg/dL Problem List/Assessment/Plan Problem List/Assessment/Plan Complete heart block s/p transvenous pacemaker insertion Syncope and collapse secondary to above Unspecified atrial fibrillation status post DC cardioversion (11/2023), on Eliquis/BB Severe coronary artery disease including severe distal left main, ostial LAD, and ostial LCx Chronic compensated HFpEF Mitral valve regurgitation, [id number] Pulmonary hypertension, severe degree Hypertension Dyslipidemia Plan/Recommendation (Dr. Christianson): The patient came in with a complete heart block underwent a transvenous pacemaker, currently set to 70 beats per minute with 5.0mA. Transthoracic echocardiogram reveals EF 70%, RVSP 60 mmHg. The patient is currently on a dopamine drip, RN to titrate off as tolerated. Plan for permanent pacemaker implantation on 08/11/2024. Processing Archivist Dr. Christianson has spoken with the patient and her son at bedside regarding procedure. The patient is agreeable to undergo procedure. In the meantime, continue with close cardiac surveillance and continuous telemetry monitoring. Notify Cardiology immediately for any ECG changes or hemodynamic instability. Thank you for allowing us to care for this patient. Please call with any questions or concerns. Critical care time: 35 min. This medical document was created using an electronic medical record system with voice recognition software and computerized dictation system. Although this document has been carefully reviewed, there might still be some phonetic and typographical errors. Occasional wrong-word or ``sound-alike substitutions may have occurred due to the inherent limitations of voice recognition software. These areas are purely typographical due to imperfections of the software programs and do not reflect any compromise in the patient's medical care. Please read the chart carefully and recognize, using context, where these substitutions have occurred. Plan discussed with: Patient Date of Service: Aug 09, 2024 Billing Provider: HERMINIA APONTE Common Visit Codes: [id number] CARE 30-74 MIN HERMINIA APONTE Aug 09, 2024 13:02
--- NOTE | 2024-08-09 18:35 | DVHPN2 ---
Subjective Seen and examined at bedside, has transvenous pacemaker. For PPM in 2-3 days Changes from previous H/P or p: No Changes Eyes: No Pain, No Vision change, No Conjunctivae inflammation, No Eyelid inflammation, No Other, No Redness ENT: No Ear pain, No Ear discharge, No Nose pain, No Nose discharge, No Nose congestion, No Mouth pain, No Mouth swelling, No Throat pain, No Throat swelling, No Other Cardiovascular: No Chest Pain, No Palpitations, No Orthopnea, No Paroxysmal Noc. Dyspnea; Edema, Lt Headedness; No Other Respiratory: No Cough, No Dry; Shortness of breath, SOB with excertion; No Wheezing, No Hemoptysis, No Pleuritic Pain, No Sputum, No Other Gastrointestinal: No Nausea, No Vomiting, No Abdominal Pain, No Diarrhea, No Constipation, No Melena, No Hematochezia, No Other Genitourinary: No Dysuria, No Frequency, No Incontinence, No Hematuria, No Retention, No Other Musculoskeletal: No other, No neck pain, No shoulder pain, No arm pain, No back pain, No hand pain, No leg pain, No foot pain Objective Vitals Vital Signs Date Time Temp Pulse Resp B/P (MAP) Pulse Ox O2 Delivery O2 Flow Rate FiO2 08/09/24 18:00 18 100 Nasal Cannula* 2 28 08/09/24 18:00 71 08/09/24 16:15 110/80 (90) 08/09/24 08:00 97.9 97.9 Intake/Output Intake and Output 08/09/24 07:00 Intake Total 254.475 ml Balance 254.475 ml IV Total 254.475 ml General Appearance: Alert, Oriented X3, Cooperative, No acute distress Lungs: Clear to auscultation Cardiovascular: Regular rate, Normal S1, Normal S2 Abdomen: Normal bowel sounds, Soft Psych/Mental Status: Mental status NL Medications Current Medications Medications Dose Ordered Sig/Christi Route Start Time Stop Time Status Last Admin Dose Admin Dopamine HCl/ Dextrose 250 ml @ 11.813 mls/ hr [id number] IV 08/08/24 12:15 Acetaminophen/ Hydrocodone Bitart 1 tab Q4HP PRN PO 08/08/24 12:30 Ondansetron HCl 4 mg Q4HP PRN IV 08/08/24 12:30 08/08/24 15:58 4 MG Docusate Sodium 100 mg BIDPRN PRN PO 08/08/24 12:30 Acetaminophen 650 mg Q6HP PRN PO 08/08/24 12:30 Nitroglycerin 0.4 mg Q5MINP PRN SL 08/08/24 12:30 Morphine Sulfate 2 mg Q30M PRN IV 08/08/24 12:30 Furosemide 40 mg DAILY PO 08/09/24 10:00 08/09/24 09:19 40 MG Spironolactone 25 mg DAILY PO 08/09/24 10:00 08/09/24 09:20 25 MG Atorvastatin Calcium 40 mg HS PO 08/08/24 22:00 Laboratory Results Laboratory Tests 08/09/24 03:53 Chemistry Test 08/09/24 03:53 Albumin 3.9 g/dL (3.2-4.8) Calcium Level 10.0 mg/dL (8.7-10.4) Total Protein 5.7 g/dL (5.7-8.2) LFT Test 08/09/24 03:53 Alanine Aminotransferase (ALT) 26 U/L (7-40) Alkaline Phosphatase 102 U/L (46-116) Aspartate Amino Transferase (AST) 31 U/L (<34) Total Bilirubin 1.4 mg/dL (0.2-1.0) H Assessment/Plan Assessment/Plan Complete heart block s/p transvenous pacemaker insertion Syncope and collapse secondary to above Unspecified atrial fibrillation status post DC cardioversion (11/2023), on Eliquis/BB Severe coronary artery disease including severe distal left main, ostial LAD, and ostial LCx Acute on Chronic HFpEF- Lasix IV Mitral valve regurgitation, [id number] Pulmonary hypertension, severe degree Hypertension Dyslipidemia Plan discussed with: Patient Date of Service: Aug 09, 2024 Billing Provider: SHANTAL MONTOYA MD Common Visit Codes: [id number] INP/OBS CARE(HIGH) SHANTAL MONTOYA MD Aug 09, 2024 18:35
[2024-08-10] VITALS (57 sets, daily range): BP systolic 82–157; BP diastolic 56–93; PULSE 69–79; RESP 8–22; TEMP 97.7–98.2; O2SAT 67–100
[2024-08-10 03:54] LABS: Basophils # (auto) 0 10 ^3/uL (0-0.2); Basophils % (auto) 0.6 % (0.0-2.0); Eosinophils # (auto) 0.2 10 ^3/uL (0-0.8); Eosinophils % (auto) 2.6 % (0.0-7.0); Hematocrit 33.8 % (36.0-46.0); Hemoglobin 11.6 g/dL (12.2-16.2); Lymphocytes # (auto) 1.3 10 ^3/uL (0.4-5.4); Lymphocytes % (auto) 20.1 % (10.0-50.0); Mean Corpuscular Hemoglobin 32.2 pg (28.0-32.0); Mean Corpuscular Hgb Conc. 34.3 g/dL (32.0-36.0); Mean Corpuscular Volume 93.9 fL (80.0-100.0); Monocytes # (auto) 0.7 10 ^3/uL (0-1.3); Monocytes % (auto) 10.4 % (0.0-12.0); Neutrophils # (auto) 4.2 10 ^3/uL (1.6-8.6); Neutrophils % (auto) 66.3 % (37.0-80.0); Platelet Count (auto) 198 10^3/uL (140-450); Red Cell Distribution Width 14.2 % (11.8-14.3); White Blood Cell 6.3 10^3/uL (4.4-10.8)
[2024-08-10 04:12] LABS: Alanine Aminotransferase 22 U/L (7-40); Albumin 3.4 g/dL (3.2-4.8); Alkaline Phosphatase 91 U/L (46-116); Anion Gap 7 (5-15); Aspartate Aminotransferase 24 U/L (<34); Blood Urea Nitrogen 16 mg/dL (9-23); Calcium 8.8 mg/dL (8.7-10.4); Carbon Dioxide 28 mmol/L (20-31); Chloride 107 mmol/L (98-107); Glucose 84 mg/dL (74-106); Potassium 3.5 mmol/L (3.5-5.1); Sodium 142 mmol/L (136-145)
[2024-08-10 04:15] LABS: Bilirubin, Total 1.2 mg/dL (0.2-1.0); Total Protein 5.1 g/dL (5.7-8.2)
[2024-08-10] MEDS: FUROSEMIDE 20 MG/2 ML VIAL IV SCH (09:49)
--- NOTE | 2024-08-10 14:41 | ECG ---
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
--- NOTE | 2024-08-10 15:59 | DVHPN2 ---
Consult Progress Note Subjective Other Systems: Patient in paced rhythm on cannoneer. Transvenous pacemaker in place set to 70 beats per minute with 5.0mA Objective vital signs Vital Sign Date Time Temp Pulse Resp B/P (MAP) Pulse Ox O2 Delivery O2 Flow Rate FiO2 08/10/24 15:30 73 15 99 08/10/24 14:00 Nasal Cannula* 2 28 08/10/24 08:00 98.2 98.2 Total Intake and Output 08/09/24 08/09/24 08/10/24 15:00 23:00 07:00 Intake Total 378.900 ml 360 ml 180 ml Output Total 0 ml Balance 378.900 ml 360 ml 180 ml medications Current Medications Medications Dose Ordered Sig/Christi Route Start Time Stop Time Status Last Admin Dose Admin Dopamine HCl/ Dextrose 250 ml @ 11.813 mls/ hr [id number] IV 08/08/24 12:15 Acetaminophen/ Hydrocodone Bitart 1 tab Q4HP PRN PO 08/08/24 12:30 Ondansetron HCl 4 mg Q4HP PRN IV 08/08/24 12:30 08/08/24 15:58 4 MG Docusate Sodium 100 mg BIDPRN PRN PO 08/08/24 12:30 Acetaminophen 650 mg Q6HP PRN PO 08/08/24 12:30 Nitroglycerin 0.4 mg Q5MINP PRN SL 08/08/24 12:30 Morphine Sulfate 2 mg Q30M PRN IV 08/08/24 12:30 Spironolactone 25 mg DAILY PO 08/09/24 10:00 08/10/24 09:49 25 MG Atorvastatin Calcium 40 mg HS PO 08/08/24 22:00 08/09/24 22:00 40 MG Furosemide 20 mg DAILY IV 08/10/24 10:00 08/10/24 09:49 20 MG Examination: GENERAL:Normal, LUNGS:Normal, CVS:Normal (Transvenous pacemaker in place), NEURO:Normal laboratory and microbiology Laboratory Tests 08/10/24 02:30 Test 08/10/24 02:30 Range/Units Serum Glucose 84 74-106 mg/dL Problem List/Assessment/Plan Problem List/Assessment/Plan Complete heart block s/p transvenous pacemaker insertion Syncope and collapse secondary to above Unspecified atrial fibrillation status post DC cardioversion (11/2023), on Eliquis/BB Severe coronary artery disease including severe distal left main, ostial LAD, and ostial LCx Chronic compensated HFpEF Mitral valve regurgitation, cgfrvhty-md-woanuk Pulmonary hypertension, severe degree Hypertension Dyslipidemia Plan/Recommendation (Dr. Christianson): The patient came in with a complete heart block underwent a transvenous pacemaker, currently set to 70 beats per minute with 5.0mA. Transthoracic echocardiogram reveals EF 70%, RVSP 60 mmHg. Plan for permanent pacemaker implantation on 08/11/2024. Trencher Driver Dr. Christianson has spoken with the patient and her son at bedside regarding procedure. The patient is agreeable to undergo procedure. In the meantime, continue with close cardiac surveillance and continuous telemetry monitoring. Notify Cardiology immediately for any ECG changes or hemodynamic instability. Thank you for allowing us to care for this patient. Please call with any questions or concerns. Critical care time: 35 min. This medical document was created using an electronic medical record system with voice recognition software and computerized dictation system. Although this document has been carefully reviewed, there might still be some phonetic and typographical errors. Occasional wrong-word or ``sound-alike substitutions may have occurred due to the inherent limitations of voice recognition software. These areas are purely typographical due to imperfections of the software programs and do not reflect any compromise in the patient's medical care. Please read the chart carefully and recognize, using context, where these substitutions have occurred. Plan discussed with: Patient Dietary Evaluation Review Comments: Continue current POC Monitor PO intake, skin trend, wt trend, lab values Expected Outcomes/Goals: To meet 75% estimated needs fu 3-5 days Date of Service: Aug 10, 2024 Billing Provider: HERMINIA APONTE Common Visit Codes: [id number] CARE 30-74 MIN HERMINIA APONTE Aug 10, 2024 15:59
--- NOTE | 2024-08-10 18:59 | DVHPN2 ---
Subjective Seen and examined at bedside, has transvenous pacemaker. For PPM tomorrow. Changes from previous H/P or p: No Changes Eyes: No Pain, No Vision change, No Conjunctivae inflammation, No Eyelid inflammation, No Other, No Redness ENT: No Ear pain, No Ear discharge, No Nose pain, No Nose discharge, No Nose congestion, No Mouth pain, No Mouth swelling, No Throat pain, No Throat swelling, No Other Cardiovascular: No Chest Pain, No Palpitations, No Orthopnea, No Paroxysmal Noc. Dyspnea; Edema, Lt Headedness; No Other Respiratory: No Cough, No Dry; Shortness of breath, SOB with excertion; No Wheezing, No Hemoptysis, No Pleuritic Pain, No Sputum, No Other Gastrointestinal: No Nausea, No Vomiting, No Abdominal Pain, No Diarrhea, No Constipation, No Melena, No Hematochezia, No Other Genitourinary: No Dysuria, No Frequency, No Incontinence, No Hematuria, No Retention, No Other Musculoskeletal: No other, No neck pain, No shoulder pain, No arm pain, No back pain, No hand pain, No leg pain, No foot pain Objective Vitals Vital Signs Date Time Temp Pulse Resp B/P (MAP) Pulse Ox O2 Delivery O2 Flow Rate FiO2 08/10/24 18:00 70 08/10/24 18:00 16 99 Nasal Cannula* 2 28 08/10/24 18:00 08/10/24 08:00 98.2 98.2 Intake/Output Intake and Output 08/10/24 07:00 Intake Total 918.900 ml Output Total 0 ml Balance 918.900 ml Intake Oral 900 ml IV Total 18.900 ml Output Stool Total 0 ml # Voids 6 General Appearance: Alert, Oriented X3, Cooperative, No acute distress Lungs: Clear to auscultation Cardiovascular: Regular rate, Normal S1, Normal S2 Abdomen: Normal bowel sounds, Soft Psych/Mental Status: Mental status NL Medications Current Medications Medications Dose Ordered Sig/Christi Route Start Time Stop Time Status Last Admin Dose Admin Dopamine HCl/ Dextrose 250 ml @ 11.813 mls/ hr [id number] IV 08/08/24 12:15 Acetaminophen/ Hydrocodone Bitart 1 tab Q4HP PRN PO 08/08/24 12:30 Ondansetron HCl 4 mg Q4HP PRN IV 08/08/24 12:30 08/08/24 15:58 4 MG Docusate Sodium 100 mg BIDPRN PRN PO 08/08/24 12:30 Acetaminophen 650 mg Q6HP PRN PO 08/08/24 12:30 Nitroglycerin 0.4 mg Q5MINP PRN SL 08/08/24 12:30 Morphine Sulfate 2 mg Q30M PRN IV 08/08/24 12:30 Spironolactone 25 mg DAILY PO 08/09/24 10:00 08/10/24 09:49 25 MG Atorvastatin Calcium 40 mg HS PO 08/08/24 22:00 08/09/24 22:00 40 MG Furosemide 20 mg DAILY IV 08/10/24 10:00 08/10/24 09:49 20 MG Laboratory Results Laboratory Tests 08/10/24 02:30 Chemistry Test 08/10/24 02:30 Albumin 3.4 g/dL (3.2-4.8) Calcium Level 8.8 mg/dL (8.7-10.4) Total Protein 5.1 g/dL (5.7-8.2) L LFT Test 08/10/24 02:30 Alanine Aminotransferase (ALT) 22 U/L (7-40) Alkaline Phosphatase 91 U/L (46-116) Aspartate Amino Transferase (AST) 24 U/L (<34) Total Bilirubin 1.2 mg/dL (0.2-1.0) H Assessment/Plan Assessment/Plan Complete heart block s/p transvenous pacemaker insertion Syncope and collapse secondary to above Unspecified atrial fibrillation status post DC cardioversion (11/2023), on Eliquis/BB Severe coronary artery disease including severe distal left main, ostial LAD, and ostial LCx Acute on Chronic HFpEF- Lasix IV Mitral valve regurgitation, [id number] Pulmonary hypertension, severe degree Hypertension Dyslipidemia Plan discussed with: Patient Date of Service: Aug 10, 2024 Billing Provider: SHANTAL MONTOYA MD Common Visit Codes: [id number] INP/OBS CARE(HIGH) SHANTAL MONTOYA MD Aug 10, 2024 18:59
[2024-08-11] VITALS (27 sets, daily range): BP systolic 88–136; BP diastolic 49–82; PULSE 58–79; RESP 11–18; TEMP 97.1–98; O2SAT 83–100
[2024-08-11 03:37] LABS: Basophils # (auto) 0 10 ^3/uL (0-0.2); Basophils % (auto) 0.5 % (0.0-2.0); Eosinophils # (auto) 0.2 10 ^3/uL (0-0.8); Eosinophils % (auto) 3.1 % (0.0-7.0); Hematocrit 35.6 % (36.0-46.0); Hemoglobin 12.3 g/dL (12.2-16.2); Lymphocytes # (auto) 1.2 10 ^3/uL (0.4-5.4); Lymphocytes % (auto) 18.2 % (10.0-50.0); Mean Corpuscular Hemoglobin 32.3 pg (28.0-32.0); Mean Corpuscular Hgb Conc. 34.5 g/dL (32.0-36.0); Mean Corpuscular Volume 93.7 fL (80.0-100.0); Monocytes # (auto) 0.7 10 ^3/uL (0-1.3); Neutrophils # (auto) 4.4 10 ^3/uL (1.6-8.6); Neutrophils % (auto) 67.2 % (37.0-80.0); Platelet Count (auto) 214 10^3/uL (140-450); White Blood Cell 6.5 10^3/uL (4.4-10.8)
[2024-08-11 03:50] LABS: Anion Gap 8 (5-15); Carbon Dioxide 28 mmol/L (20-31); Chloride 103 mmol/L (98-107); Potassium 3.6 mmol/L (3.5-5.1); Sodium 139 mmol/L (136-145)
[2024-08-11 03:51] LABS: Calcium 9.3 mg/dL (8.7-10.4); INR 1.05 (0.9-1.15); Partial Thromboplastin Time 25.6 SEC (24.5-34.5); Prothrombin Time 11.1 sec (9.3-11.8)
[2024-08-11 03:56] LABS: BUN/Creatinine Ratio 17.2 (10.0-20.0); Blood Urea Nitrogen 16 mg/dL (9-23); Glucose 94 mg/dL (74-106)
[2024-08-11 07:58] LABS: Urine Bacteria FEW /hpf (None Seen); Urine Blood Negative /uL (Negative); Urine Clarity Turbid (Clear); Urine Color Light-Yellow (Yellow); Urine Mucus FEW (None Seen); Urine Protein, UAD Negative (Negative); Urine Specific Gravity 1.013 (1.001-1.035); Urine Squamous Epithelial Cell FEW /hpf (<5); Urine Urobilinogen Normal (Negative); Urine WBC 43 /HPF (0-5); Urine pH 5.5 (5.0-9.0)
[2024-08-11] MEDS: MIDAZOLAM HCL 2MG/2ML 2ml VIAL (1mg/ml) ONE (14:07)
[2024-08-11] MEDS: VANCOMYCIN HCL 1000 MG VL ONE (14:07)
[2024-08-11] MEDS: VANCOMYCIN 1GM/200ML PM 200 ML IV ONE (14:07)
[2024-08-11] MEDS: fentaNYL CITRATE 100 MCG/2 ML VL ONE (14:07)
[2024-08-11] MEDS: LIDOCAINE 2%HCL (LOCAL ANESTH.) INJ 20ML MDV ONE (14:08)
[2024-08-11] MEDS: IODIXANOL 320MG/ML 100ML BTL IV ONE (14:34)
--- NOTE | 2024-08-11 15:43 | DVHPN2 ---
Subjective Seen and examined at bedside, has transvenous pacemaker. For PPM today Changes from previous H/P or p: No Changes Eyes: No Pain, No Vision change, No Conjunctivae inflammation, No Eyelid inflammation, No Other, No Redness ENT: No Ear pain, No Ear discharge, No Nose pain, No Nose discharge, No Nose congestion, No Mouth pain, No Mouth swelling, No Throat pain, No Throat swelling, No Other Cardiovascular: No Chest Pain, No Palpitations, No Orthopnea, No Paroxysmal Noc. Dyspnea; Edema, Lt Headedness; No Other Respiratory: No Cough, No Dry; Shortness of breath, SOB with excertion; No Wheezing, No Hemoptysis, No Pleuritic Pain, No Sputum, No Other Gastrointestinal: No Nausea, No Vomiting, No Abdominal Pain, No Diarrhea, No Constipation, No Melena, No Hematochezia, No Other Genitourinary: No Dysuria, No Frequency, No Incontinence, No Hematuria, No Retention, No Other Musculoskeletal: No other, No neck pain, No shoulder pain, No arm pain, No back pain, No hand pain, No leg pain, No foot pain Objective Vitals Vital Signs Date Time Temp Pulse Resp B/P (MAP) Pulse Ox O2 Delivery O2 Flow Rate FiO2 08/11/24 14:00 70 12 127/70 (89) 100 08/11/24 13:50 Nasal Cannula* 2 28 08/11/24 13:00 98.0 98.0 Intake/Output Intake and Output 08/11/24 07:00 Intake Total 880 ml Output Total 0 ml Balance 880 ml Intake Oral 880 ml Output Stool Total 0 ml # Voids 3 General Appearance: Alert, Oriented X3, Cooperative, No acute distress Lungs: Clear to auscultation Cardiovascular: Regular rate, Normal S1, Normal S2 Abdomen: Normal bowel sounds, Soft Psych/Mental Status: Mental status NL Medications Current Medications Medications Dose Ordered Sig/Christi Route Start Time Stop Time Status Last Admin Dose Admin Dopamine HCl/ Dextrose 250 ml @ 11.813 mls/ hr [id number] IV 08/08/24 12:15 Acetaminophen/ Hydrocodone Bitart 1 tab Q4HP PRN PO 08/08/24 12:30 Ondansetron HCl 4 mg Q4HP PRN IV 08/08/24 12:30 08/08/24 15:58 4 MG Docusate Sodium 100 mg BIDPRN PRN PO 08/08/24 12:30 Acetaminophen 650 mg Q6HP PRN PO 08/08/24 12:30 Nitroglycerin 0.4 mg Q5MINP PRN SL 08/08/24 12:30 Morphine Sulfate 2 mg Q30M PRN IV 08/08/24 12:30 Spironolactone 25 mg DAILY PO 08/09/24 10:00 08/10/24 09:49 25 MG Atorvastatin Calcium 40 mg HS PO 08/08/24 22:00 08/10/24 21:47 40 MG Furosemide 20 mg DAILY IV 08/10/24 10:00 08/10/24 09:49 20 MG Laboratory Results Laboratory Tests 08/11/24 02:47 Chemistry Test 08/11/24 02:47 Calcium Level 9.3 mg/dL (8.7-10.4) Coagulation Test 08/11/24 02:47 Prothrombin Time 11.1 sec (9.3-11.8) Prothrombin Time INR 1.05 (0.9-1.15) Activated Partial Thromboplast Time 25.6 SEC (24.5-34.5) Urinalysis Test 08/11/24 07:30 Urine Color Light-yellow (Yellow) Urine Clarity Turbid (Clear) H Urine pH 5.5 (5.0-9.0) Urine Specific [place] 1.013 (1.001-1.035) Urine Protein Negative (Negative) Urine Ketones Negative (Negative) Urine Blood Negative /uL (Negative) Urine Nitrite Negative (Negative) Urine Bilirubin Negative (Negative) Urine Urobilinogen Normal mg/dL (Negative) Urine Leukocyte Esterase 3+ /uL (Negative) Urine RBC 2 /hpf (0 - 4) Urine Microscopic WBC 43 /HPF (0-5) H Urine Squamous Epithelial Cells Few /hpf (<5) Urine Bacteria Few /hpf (None Seen) H Urine Mucus Few (None Seen) Urine Glucose Normal mg/dL (Normal) Assessment/Plan Assessment/Plan Complete heart block s/p transvenous pacemaker insertion for [facility] today Syncope and collapse secondary to above Unspecified atrial fibrillation status post DC cardioversion (11/2023), on Eliquis/BB Severe coronary artery disease including severe distal left main, ostial LAD, and ostial LCx Acute on Chronic HFpEF- Lasix IV Mitral valve regurgitation, [id number] Pulmonary hypertension, severe degree Hypertension Dyslipidemia Plan discussed with: Patient My Orders Orders - SHANTAL MONTOYA MD Procedure Category Date Status Time Urine Bacterial IRVIN 08/11/24 In Process Culture 07:42 Date of Service: Aug 11, 2024 Billing Provider: SHANTAL MONTOYA MD Common Visit Codes: [id number] INP/OBS CARE(HIGH) SHANTAL MONTOYA MD Aug 11, 2024 15:42
[2024-08-11] MEDS: ACETAMINOPHEN 325 MG TAB PO PRN (18:17)
--- NOTE | 2024-08-11 20:09 | DVHOP2 ---
Operative Report - 2 Report Details Date: 08/11/24 Preop Diagnosis: Complete heart block Postop Diagnosis: Complete heart block Surgeon: Ren Christianson MD Anesthesiologist: Conscious sedation, local anesthetic Anesthesia: Mac, Local Consent: The patient was informed of the risks and benefits of the procedure. These include but are not limited to complications of anesthesia, postoperative infection, incomplete relief of symptoms, recurrence of symptoms, damage to blood vessels, nerves and tendons, deep venous thrombosis, pulmonary embolism and possible need for repeat surgery in the future. Complications: No complications Estimated Blood Loss: Five Cc Findings: Complete heart block Indications for Surgery: Complete heart block Name of Procedure Performed Permanent pacemaker Procedure Details Procedure Details: Prior local anesthesia 2% lidocaine to the left infraclavicular area over the pectoral muscle an incision was made and dissection planes with the electrocautery and blunt dissection transpired. We then formed a pocket under the pectoral muscle and with a subpectoral approach we placed an antibiotic fills sponge. We then gained access into the subclavian vein after fluoroscopic imaging revealed where the vein was subsequent to a venogram. We placed a peel- away sheath nine [place] in size into the subclavian vein with AJ curved guidewire. We placed active fixation electrodes into the RV apex and right atrial appendage with adequate capture and sensitivity thresholds. These were sutured with 0 Ethibond after removing the peel-away sheaths. We then flushed the pocket with antibiotic solution and connected the generator to the leads. The leads were then sutured with 0 Ethibond and pacemaker and leads were placed subpectorally. The pocket was closed with 3-0 Vicryl and four 0.0 Monocryl was used to close the skin. The right ventricular lead is a [employer] model [id number] S 53 serial number [id number]. We could not measure an R-wave given that the patient was being continuously paced with an external transvenous pacemaker. 0.5 volts were measured at 0.4 milliseconds. Five hundred fifty Ohms of resistance noted. The atrial lead is a [employer] lead, mild [id number]. Serial number [id number]. The P-wave was 1.5 volts. 0.8 volts of threshold energy required with 0.4 milliseconds at 420 Ohms of resistance. The thresholds in the right atrium were as follows: Pulse amplitude of4 volts at 0.4 milliseconds with a sensitivity of 0.4 mV with bipolar configuration and sensing and pacing. The thresholds in the right ventricle were as follows: 4 volts at 0.4 milliseconds of pulse width. 2.0 mV. Bipolar configuration in both sensing and pacing. The pulse generator is a model number [id number], this is an [employer] Edge DRT-T, serial number [id number] by [employer] The settings are as follows: DDDR mode. 65/130, av delay of 180/155, PVARP at 275 milliseconds. RA sensitivity automatic at 0.5 maximum. RV sensitivity auto. 2.0 maximum. RA output 0.4 volts at 0.4 milliseconds with an RV output at 4.0 volts at 0.40 milliseconds Patient tolerated the procedure well there were no complications Impression successful placement of dual-chamber permanent pacemaker. Subpectoral implanted. Adequate capture and sensitivity thresholds were obtained. Fluoroscopic guidance was used throughout the procedure. Conscious sedation given. A chest x-ray and EKG were ordered for evaluation of placement. Condition Good Disposition Still a Patient Date of Service: Aug 11, 2024 Billing Provider: REN CHRISTIANSON Sr., MD Cardiology Common Codes: [id number] INP/OBS CARE (High) Card. Pacer Implants/Gen [id number] DUAL LEAD PACER, [id number]- INS/Replace TTVPM/PACER REN CHRISTIANSON Sr., MD Aug 11, 2024 20:09
--- NOTE | 2024-08-11 21:03 | DVH ---
INDICATION: Status post pacemaker TECHNIQUE: Frontal view of the chest. COMPARISON: XY CHEST PORTABLE on DOS: 08/08/24 FINDINGS/IMPRESSION: Interval placement of left-sided dual-chamber pacemaker. No pneumothorax. Unchan ged cardiomediastinal silhouette. Elevated left hemidiaphragm with probable gaseous distention of the bowel in the left upper quadrant. If there is clinical concern for pneumoperitoneum, a CT abdomen/p juan may be beneficial in further assessment.
[2024-08-11] MEDS: DOCUSATE SOD 100 MG CAP PO PRN (21:40)
[2024-08-12] VITALS (8 sets, daily range): BP systolic 110–152; BP diastolic 52–80; PULSE 57–69; RESP 17–19; TEMP 98–98.4; O2SAT 95–100
--- NOTE | 2024-08-12 14:08 | DVHPN2 ---
Reviewed: Care Plan, H&P, Labs, Medications, Previous Orders, Radiology Changes from previous H/P or p: No Changes Eyes: No Pain, No Vision change, No Conjunctivae inflammation, No Eyelid inflammation, No Other, No Redness ENT: No Ear pain, No Ear discharge, No Nose pain, No Nose discharge, No Nose congestion, No Mouth pain, No Mouth swelling, No Throat pain, No Throat swelling, No Other Cardiovascular: No Chest Pain, No Palpitations, No Orthopnea, No Paroxysmal Noc. Dyspnea; Edema, Lt Headedness; No Other Respiratory: No Cough, No Dry; Shortness of breath, SOB with excertion; No Wheezing, No Hemoptysis, No Pleuritic Pain, No Sputum, No Other Gastrointestinal: No Nausea, No Vomiting, No Abdominal Pain, No Diarrhea, No Constipation, No Melena, No Hematochezia, No Other Genitourinary: No Dysuria, No Frequency, No Incontinence, No Hematuria, No Retention, No Other Musculoskeletal: No other, No neck pain, No shoulder pain, No arm pain, No back pain, No hand pain, No leg pain, No foot pain Objective Vitals Vital Signs Date Time Temp Pulse Resp B/P (MAP) Pulse Ox O2 Delivery O2 Flow Rate FiO2 08/12/24 13:00 98.3 66 18 116/66 (83) 97 98.3 08/12/24 08:00 Room Air* 0 21 Intake/Output Intake and Output 08/12/24 07:00 Intake Total 1230 ml Balance 1230 ml Intake Oral 1230 ml # Voids 3 General Appearance: Alert, Oriented X3, Cooperative, No acute distress Lungs: Clear to auscultation Cardiovascular: Regular rate, Normal S1, Normal S2 Abdomen: Normal bowel sounds, Soft Psych/Mental Status: Mental status NL Medications Current Medications Medications Dose Ordered Sig/Christi Route Start Time Stop Time Status Last Admin Dose Admin Acetaminophen/ Hydrocodone Bitart 1 tab Q4HP PRN PO 08/08/24 12:30 Ondansetron HCl 4 mg Q4HP PRN IV 08/08/24 12:30 08/08/24 15:58 4 MG Docusate Sodium 100 mg BIDPRN PRN PO 08/08/24 12:30 08/11/24 21:40 100 MG Acetaminophen 650 mg Q6HP PRN PO 08/08/24 12:30 08/12/24 09:15 650 MG Nitroglycerin 0.4 mg Q5MINP PRN SL 08/08/24 12:30 Morphine Sulfate 2 mg Q30M PRN IV 08/08/24 12:30 Spironolactone 25 mg DAILY PO 08/09/24 10:00 08/12/24 09:01 25 MG Atorvastatin Calcium 40 mg HS PO 08/08/24 22:00 08/11/24 21:38 40 MG Furosemide 20 mg DAILY IV 08/10/24 10:00 08/12/24 09:01 20 MG Laboratory Results Laboratory Tests 08/11/24 02:47 Urinalysis Test 08/11/24 07:30 Urine Color Light-yellow (Yellow) Urine Clarity Turbid (Clear) H Urine pH 5.5 (5.0-9.0) Urine Specific [place] 1.013 (1.001-1.035) Urine Protein Negative (Negative) Urine Ketones Negative (Negative) Urine Blood Negative /uL (Negative) Urine Nitrite Negative (Negative) Urine Bilirubin Negative (Negative) Urine Urobilinogen Normal mg/dL (Negative) Urine Leukocyte Esterase 3+ /uL (Negative) Urine RBC 2 /hpf (0 - 4) Urine Microscopic WBC 43 /HPF (0-5) H Urine Squamous Epithelial Cells Few /hpf (<5) Urine Bacteria Few /hpf (None Seen) H Urine Mucus Few (None Seen) Urine Glucose Normal mg/dL (Normal) Microbiology Microbiology Date/Time Source Procedure Growth Status 08/11/24 07:30 Voided Urine Urine Culture - Preliminary Resulted Labs and/or images reviewed: Labs reviewed by me, Image(s) reviewed by me Assessment/Plan Assessment/Plan Covering for Dr. Vazquez Complete heart block s/p permanent pacemaker by Dr. Christianson Syncope and collapse secondary to above Unspecified atrial fibrillation status post DC cardioversion (11/2023), on Eliquis/BB Severe coronary artery disease including severe distal left main, ostial LAD, and ostial LCx Acute on Chronic HFpEF- Lasix IV Mitral valve regurgitation, [id number] Pulmonary hypertension, severe degree Hypertension Dyslipidemia Continue Current management Plan discussed with: Patient Date of Service: Aug 12, 2024 Billing Provider: PERNELL BAILEY MD Common Visit Codes: [id number] INP/OBS CARE(HIGH) PERNELL BAILEY MD Aug 12, 2024 14:08
[2024-08-13 01:00] VITALS: BP 130/86; PULSE 63; RESP 17; TEMP 98; O2SAT 94
[2024-08-13 05:00] VITALS: BP 122/76; PULSE 60; RESP 16; TEMP 97.8; O2SAT 95
[2024-08-13 08:00] VITALS: PULSE 60; PULSE 72; RESP 18; O2SAT 99
--- NOTE | 2024-08-13 08:39 | DVHPN2 ---
Consult Progress Note Subjective Patient reports: No new complaints Objective vital signs Vital Sign Date Time Temp Pulse Resp B/P (MAP) Pulse Ox O2 Delivery O2 Flow Rate FiO2 08/13/24 05:00 97.8 60 16 122/76 (91) 95 97.8 08/12/24 20:00 Room Air* 0 21 Total Intake and Output 08/12/24 08/12/24 08/13/24 15:00 23:00 07:00 Intake Total 240 ml 530 ml 700 ml Balance 240 ml 530 ml 700 ml medications Current Medications Medications Dose Ordered Sig/Christi Route Start Time Stop Time Status Last Admin Dose Admin Acetaminophen/ Hydrocodone Bitart 1 tab Q4HP PRN PO 08/08/24 12:30 Ondansetron HCl 4 mg Q4HP PRN IV 08/08/24 12:30 08/08/24 15:58 4 MG Docusate Sodium 100 mg BIDPRN PRN PO 08/08/24 12:30 08/12/24 21:02 100 MG Acetaminophen 650 mg Q6HP PRN PO 08/08/24 12:30 08/12/24 21:02 650 MG Nitroglycerin 0.4 mg Q5MINP PRN SL 08/08/24 12:30 Morphine Sulfate 2 mg Q30M PRN IV 08/08/24 12:30 Spironolactone 25 mg DAILY PO 08/09/24 10:00 08/12/24 09:01 25 MG Atorvastatin Calcium 40 mg HS PO 08/08/24 22:00 08/12/24 21:02 40 MG Furosemide 20 mg DAILY IV 08/10/24 10:00 08/12/24 09:01 20 MG Examination: CVS:Normal laboratory and microbiology Laboratory Tests 08/11/24 02:47 Test 08/11/24 02:47 Range/Units Serum Glucose 94 74-106 mg/dL Problem List/Assessment/Plan Problem List/Assessment/Plan Complete heart block s/p transvenous pacemaker insertion Syncope and collapse secondary to above Unspecified atrial fibrillation status post DC cardioversion (11/2023), on Eliquis/BB Severe coronary artery disease including severe distal left main, ostial LAD, and ostial LCx Chronic compensated HFpEF Mitral valve regurgitation, [id number] Pulmonary hypertension, severe degree Hypertension Dyslipidemia Plan/Recommendation (Dr. Christianson): An 79-year-old female with a history of complete heart block presented for evaluation following permanent pacemaker implantation. Pacemaker interrogation was performed by [employer] and demonstrated good device function with the appropriate sensing and pacing parameters. The patient is advised to follow-up with Cardiology and continue GDM T for heart failure. Critical care time: 35 min. This medical document was created using an electronic medical record system with voice recognition software and computerized dictation system. Although this document has been carefully reviewed, there might still be some phonetic and typographical errors. Occasional wrong-word or ``sound-alike substitutions may have occurred due to the inherent limitations of voice recognition software. These areas are purely typographical due to imperfections of the software programs and do not reflect any compromise in the patient's medical care. Please read the chart carefully and recognize, using context, where these substitutions have occurred. 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
--- NOTE | 2024-08-13 09:31 | DVHPN2 ---
Reviewed: Care Plan, H&P, Labs, Medications, Previous Orders, Radiology Changes from previous H/P or p: No Changes Eyes: No Pain, No Vision change, No Conjunctivae inflammation, No Eyelid inflammation, No Other, No Redness ENT: No Ear pain, No Ear discharge, No Nose pain, No Nose discharge, No Nose congestion, No Mouth pain, No Mouth swelling, No Throat pain, No Throat swelling, No Other Cardiovascular: No Chest Pain, No Palpitations, No Orthopnea, No Paroxysmal Noc. Dyspnea; Edema, Lt Headedness; No Other Respiratory: No Cough, No Dry; Shortness of breath, SOB with excertion; No Wheezing, No Hemoptysis, No Pleuritic Pain, No Sputum, No Other Gastrointestinal: No Nausea, No Vomiting, No Abdominal Pain, No Diarrhea, No Constipation, No Melena, No Hematochezia, No Other Genitourinary: No Dysuria, No Frequency, No Incontinence, No Hematuria, No Retention, No Other Musculoskeletal: No other, No neck pain, No shoulder pain, No arm pain, No back pain, No hand pain, No leg pain, No foot pain Objective Vitals Vital Signs Date Time Temp Pulse Resp B/P (MAP) Pulse Ox O2 Delivery O2 Flow Rate FiO2 08/13/24 05:00 97.8 60 16 122/76 (91) 95 97.8 08/12/24 20:00 Room Air* 0 21 Intake/Output Intake and Output 08/13/24 07:00 Intake Total 1470 ml Balance 1470 ml Intake Oral 1470 ml # Voids 3 General Appearance: Alert, Oriented X3, Cooperative, No acute distress Lungs: Clear to auscultation Cardiovascular: Regular rate, Normal S1, Normal S2 Abdomen: Normal bowel sounds, Soft Psych/Mental Status: Mental status NL Medications Current Medications Medications Dose Ordered Sig/Christi Route Start Time Stop Time Status Last Admin Dose Admin Acetaminophen/ Hydrocodone Bitart 1 tab Q4HP PRN PO 08/08/24 12:30 Ondansetron HCl 4 mg Q4HP PRN IV 08/08/24 12:30 08/08/24 15:58 4 MG Docusate Sodium 100 mg BIDPRN PRN PO 08/08/24 12:30 08/12/24 21:02 100 MG Acetaminophen 650 mg Q6HP PRN PO 08/08/24 12:30 08/12/24 21:02 650 MG Nitroglycerin 0.4 mg Q5MINP PRN SL 08/08/24 12:30 Morphine Sulfate 2 mg Q30M PRN IV 08/08/24 12:30 Spironolactone 25 mg DAILY PO 08/09/24 10:00 08/12/24 09:01 25 MG Atorvastatin Calcium 40 mg HS PO 08/08/24 22:00 08/12/24 21:02 40 MG Furosemide 20 mg DAILY IV 08/10/24 10:00 08/12/24 09:01 20 MG Laboratory Results Laboratory Tests 08/11/24 02:47 Urinalysis Test 08/11/24 07:30 Urine Color Light-yellow (Yellow) Urine Clarity Turbid (Clear) H Urine pH 5.5 (5.0-9.0) Urine Specific [place] 1.013 (1.001-1.035) Urine Protein Negative (Negative) Urine Ketones Negative (Negative) Urine Blood Negative /uL (Negative) Urine Nitrite Negative (Negative) Urine Bilirubin Negative (Negative) Urine Urobilinogen Normal mg/dL (Negative) Urine Leukocyte Esterase 3+ /uL (Negative) Urine RBC 2 /hpf (0 - 4) Urine Microscopic WBC 43 /HPF (0-5) H Urine Squamous Epithelial Cells Few /hpf (<5) Urine Bacteria Few /hpf (None Seen) H Urine Mucus Few (None Seen) Urine Glucose Normal mg/dL (Normal) Microbiology Microbiology Date/Time Source Procedure Growth Status 08/11/24 07:30 Voided Urine Urine Culture - Preliminary Resulted Labs and/or images reviewed: Labs reviewed by me, Image(s) reviewed by me Assessment/Plan Assessment/Plan Covering for Dr. Vazquez Complete heart block s/p permanent pacemaker by Dr. Christianson pacemaker interrogation was done working well cleared for discharge by Cardiology Syncope and collapse secondary to above Unspecified atrial fibrillation status post DC cardioversion (11/2023), on Eliquis/BB Severe coronary artery disease including severe distal left main, ostial LAD, and ostial LCx Acute on Chronic HFpEF- Lasix IV Mitral valve regurgitation, [id number] Pulmonary hypertension, severe degree Hypertension Dyslipidemia Continue Current management Plan discussed with: Patient Date of Service: Aug 13, 2024 Billing Provider: PERNELL BAILEY MD Common Visit Codes: [id number] INP/OBS CARE(HIGH) PERNELL BAILEY MD Aug 13, 2024 09:31
--- NOTE | 2024-08-13 09:35 | DVHDS2 ---
Discharge Summary Date of Admission Aug 08, 2024 at 12:26 Date of Discharge: Aug 13, 2024 Admitting Diagnosis Bradycardia Wounds: Pacemaker insertion Labs/Diagnostic Data: Laboratory Results Test 08/11/24 13:58 08/11/24 07:30 08/11/24 02:47 08/10/24 02:30 POC Glucose 70 mg/dl (70-106) Urine Color Light-yellow (Yellow) Urine Clarity Turbid (Clear) Urine pH 5.5 (5.0-9.0) Urine Specific [place] 1.013 (1.001-1.035) Urine Protein Negative (Negative) Urine Ketones Negative (Negative) Urine Blood Negative /uL (Negative) Urine Nitrite Negative (Negative) Urine Bilirubin Negative (Negative) Urine Urobilinogen Normal mg/dL (Negative) Urine Leukocyte Esterase 3+ /uL (Negative) Urine RBC 2 /hpf (0 - 4) Urine Microscopic WBC 43 /HPF (0-5) Urine Squamous Epithelial Cells Few /hpf (<5) Urine Bacteria Few /hpf (None Seen) Urine Mucus Few (None Seen) Urine Glucose Normal mg/dL (Normal) White Blood Count 6.5 10^3/uL (4.4-10.8) Red Blood Count 3.80 10^6/uL (4.0-5.20) Hemoglobin 12.3 g/dL (12.2-16.2) Hematocrit 35.6 % (36.0-46.0) Mean Corpuscular Volume 93.7 fL (80.0-100.0) Mean Corpuscular Hemoglobin 32.3 pg (28.0-32.0) Mean Corpuscular Hemoglobin Concent 34.5 g/dL (32.0-36.0) Red Cell Distribution Width 14.0 % (11.8-14.3) Platelet Count 214 10^3/uL (140-450) Mean Platelet Volume 8.0 fL (6.9-10.8) Neutrophils (%) (Auto) 67.2 % (37.0-80.0) Lymphocytes (%) (Auto) 18.2 % (10.0-50.0) Monocytes (%) (Auto) 11.0 % (0.0-12.0) Eosinophils (%) (Auto) 3.1 % (0.0-7.0) Basophils (%) (Auto) 0.5 % (0.0-2.0) Neutrophils # (Auto) 4.4 10 ^3/uL (1.6-8.6) Lymphocytes # (Auto) 1.2 10 ^3/uL (0.4-5.4) Monocytes # (Auto) 0.7 10 ^3/uL (0-1.3) Eosinophils # (Auto) 0.2 10 ^3/uL (0-0.8) Basophils # (Auto) 0 10 ^3/uL (0-0.2) Nucleated Red Blood Cells 0.0 % Prothrombin Time 11.1 sec (9.3-11.8) Prothrombin Time INR 1.05 (0.9-1.15) Activated Partial Thromboplast Time 25.6 SEC (24.5-34.5) Sodium Level 139 mmol/L (136-145) Potassium Level 3.6 mmol/L (3.5-5.1) Chloride Level 103 mmol/L (98-107) Carbon Dioxide Level 28 mmol/L (20-31) Anion Gap 8 (5-15) Blood Urea Nitrogen 16 mg/dL (9-23) Creatinine 0.93 mg/dL (0.550-1.02) Glomerular Filtration Rate Calc 62 mL/min (>90) BUN/Creatinine Ratio 17.2 (10.0-20.0) Serum Glucose 94 mg/dL (74-106) Calcium Level 9.3 mg/dL (8.7-10.4) Total Bilirubin 1.2 mg/dL (0.2-1.0) Aspartate Amino Transferase (AST) 24 U/L (<34) Alanine Aminotransferase (ALT) 22 U/L (7-40) Alkaline Phosphatase 91 U/L (46-116) Total Protein 5.1 g/dL (5.7-8.2) Albumin 3.4 g/dL (3.2-4.8) Test 08/08/24 11:30 08/08/24 10:15 Troponin I High Sensitivity 43 ng/L (</=34) Hemoglobin A1c 5.4 % A1C (<5.7) Lactic Acid Level 1.5 mmol/L (0.4-2.0) Phosphorus Level 3.1 mg/dL (2.4-5.1) Magnesium Level 2.1 mg/dL (1.6-2.6) B-Type Natriuretic Peptide 729.14 pg/mL (0-100) Triglycerides Level 101 mg/dL (< 150) Cholesterol Level 121 mg/dL (< 200) LDL Cholesterol 63 mg/dL (< 100) HDL Cholesterol 41 mg/dL (40-59) Thyroid Stimulating Hormone (TSH) 2.85 uIU/mL (0.55-4.78) Other Laboratory Tests 08/11/24 02:47 Brief Hx & Hospital Course: 79-year-old female with a history of coronary artery disease including distal left main ostial LAD and ostial left circumflex CHF mitral valve regurgitation pulmonary hypertension hypertension hypercholesterolemia had syncopal episode and collapse found to have symptomatic bradycardia with complete heart block. The patient had permanent pacemaker implantation by Dr. Christianson. Pacemaker interrogation was done and the pacemaker working well cleared for discharge by Cardiology. Patient discharged home. No new medications. She will follow up with the Dr. Christianson in two weeks. Consults/Reason for consult Cardiology Dr. Christianson Operations or Procedures Permanent pacemaker implantation Condition at Discharge: Fair Final Diagnosis/Problems List Complete heart block s/p permanent pacemaker by Dr. Christianson pacemaker interrogation was done working well cleared for discharge by Cardiology Syncope and collapse secondary to above Unspecified atrial fibrillation status post DC cardioversion (11/2023), on Eliquis/BB Severe coronary artery disease including severe distal left main, ostial LAD, and ostial LCx Acute on Chronic HFpEF- Lasix IV Mitral valve regurgitation, [id number] Pulmonary hypertension, severe degree Hypertension Dyslipidemia Discharge Disposition: Home Discharge Instruct/Medications Diet: Cardiac 2g Na,low cholest Activity: Light activity Follow Up/Referral: Follow up with the variety saw operator Dr. Christianson in two weeks Medications: No new meds 35 (Time taken for discharge summary 35 minutes) Discharge Statement: "Patient was advised to return to the ER or call 911 if any headaches, dizziness, shortness of breath, chest pain, abdominal pain, bleeding, fevers, or worsening of medical condition. Patient was counseled about treatment plan, medications, possible side effects, patientverbalized understanding. All questions were answered to the best of my ability. This discharge took greater then 30 minutes in planning, reviewing documentation, counseling the patient, and discussing with other team members." ASSESSMENT ASSESSMENT Hospital Course Uneventful Assessment Complete heart block s/p permanent pacemaker by Dr. Christianson pacemaker interrogation was done working well cleared for discharge by Cardiology Syncope and collapse secondary to above Unspecified atrial fibrillation status post DC cardioversion (11/2023), on Eliquis/BB Severe coronary artery disease including severe distal left main, ostial LAD, and ostial LCx Acute on Chronic HFpEF- Lasix IV Mitral valve regurgitation, [id number] Pulmonary hypertension, severe degree Hypertension Dyslipidemia Date of Service: Aug 13, 2024 Billing Provider: PERNELL BAILEY MD Common Visit Codes: 27057-NSE/OBS DISCH DAY >30min PERNELL BAILEY MD Aug 13, 2024 09:35
[2024-08-13 10:26] VITALS: BP 104/56; PULSE 72; RESP 18; TEMP 98.3; O2SAT 99
[2024-08-13 13:00] VITALS: BP 129/76; PULSE 59; RESP 16; TEMP 97.9; O2SAT 98
--- NOTE | 2024-08-13 23:02 | DVHPN2 ---
Consult Progress Note Subjective Patient reports: No new complaints Other Systems: Patient was seen and evaluated in follow up. Patient has no new complaints at this time. Patient denies any cardiac symptoms. Patient is cardiac stable for discharge. Telemetry reviewed. Objective vital signs Vital Sign Date Time Temp Pulse Resp B/P (MAP) Pulse Ox O2 Delivery O2 Flow Rate FiO2 08/13/24 13:00 97.9 59 16 129/76 (93) 98 97.9 08/13/24 08:00 Room Air* 0 21 Total Intake and Output 08/12/24 08/12/24 08/13/24 15:00 23:00 07:00 Intake Total 240 ml 530 ml 700 ml Balance 240 ml 530 ml 700 ml Examination: GENERAL:Normal, HEENT:Normal, NECK:Normal, LUNGS:Normal, CVS:Normal, ABDOMEN:Normal laboratory and microbiology Laboratory Tests 08/11/24 02:47 Test 08/11/24 02:47 Range/Units Serum Glucose 94 74-106 mg/dL Problem List/Assessment/Plan Problem List/Assessment/Plan Problem List/Assessment/Plan Complete heart block s/p transvenous pacemaker insertion. Syncope and collapse secondary to above . Unspecified atrial fibrillation status post DC cardioversion (11/2023), on Eliquis/BB. Severe coronary artery disease including severe distal left main, ostial LAD, and ostial LCx. Chronic compensated HFpEF. Mitral valve regurgitation, [id number]. Pulmonary hypertension, severe degree. Hypertension . Dyslipidemia. Plan/Recommendation Continued all current supportive medical care. Patient has been seen by Myra Gomez NP on my behalf, her and I discussed the plan with the patient. An 79-year-old female with a history of complete heart block presented for evaluation following permanent pacemaker implantation. Pacemaker interrogation was performed by [employer] and demonstrated good device function with the appropriate sensing and pacing parameters. The patient is advised to follow-up with Cardiology and continue GDMT for heart failure. Additional plan as per the hospital course. Plan discussed with: Patient Dietary Evaluation Review Comments: Continue current POC Monitor PO intake, skin trend, wt trend, lab values Expected Outcomes/Goals: To meet 75% estimated needs fu 3-5 days Date of Service: Aug 13, 2024 Billing Provider: DAWN MOBLEY MD Cardiology Common Codes: 56019-QHZIVCF INP/OBS CARE (High) Cardiology Consultation Codes: 02056-[id number] CONSULT <45MIN DAWN MOBLEY MD Aug 13, 2024 14:18
== END 2024-08-13 13:35 | disposition home or self-care (01) | DRG 242 ==
LOC: ER 10:05 → OVERFLOW 12:26 → CATH ICU 16:00 → OVERFLOW 18:37 → CATH ICU 19:57 → ICU WEST 08-10 05:00 → TELE-CENTR 08-11 18:05
PROVIDERS: ADMIT Internal Medicine; ATTEND Internal Medicine
PROC: 5A1223Z Performance of Cardiac Pacing, Continuous (ICD-10-PCS; 2024-08-08)
PROC: 0JH606Z Insertion of Pacemaker, Dual Chamber into Chest Subcutaneous Tissue and Fascia, Open Approach (ICD-10-PCS; principal; 2024-08-11)
PROC: 02H63JZ Insertion of Pacemaker Lead into Right Atrium, Percutaneous Approach (ICD-10-PCS; 2024-08-11)
PROC: 02HK3JZ Insertion of Pacemaker Lead into Right Ventricle, Percutaneous Approach (ICD-10-PCS; 2024-08-11)
DX: I44.2 Atrioventricular block, complete (principal); I50.33 Acute on chronic diastolic (congestive) heart failure; N17.0 Acute kidney failure with tubular necrosis; I27.20 Pulmonary hypertension, unspecified; I25.10 Atherosclerotic heart disease of native coronary artery without angina pectoris; I11.0 Hypertensive heart disease with heart failure; I48.91 Unspecified atrial fibrillation; I34.0 Nonrheumatic mitral (valve) insufficiency; E78.00 Pure hypercholesterolemia, unspecified; Z79.01 Long term (current) use of anticoagulants; Z79.899 Other long term (current) drug therapy; Z82.49 Family history of ischemic heart disease and other diseases of the circulatory system; Z79.02 Long term (current) use of antithrombotics/antiplatelets
CPT/HCPCS: 33208; 33210; 36415; 71045; 80048; 80053; 80061; 81001; 82962; 83036; 83605; 83735; 83880; 84100; 84443; 84484; 85025; 85610; 85730; 87081; 87086; 93005; 93306; 96361; 96374; 96375; 99152; C1751; C1894; G0378; J2250; J2405; J7060; Q9967